=== PATIENT | female | born 1985 | race Caucasian/White ===

== ENCOUNTER 2020-01-30 10:32 | Outpatient (CLI) | payer OTHER, SELFPAY ==
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
[2020-01-30 12:45] LABS: Hematocrit 43.2 % (37.0-47.0); Hemoglobin 14.4 g/dL (12.0-15.0); Mean Corpuscular HGB Conc 33.3 g/dl (32-36); Mean Corpuscular Hemoglobin 32.2 pg (26-34); Mean Corpuscular Volume 96.6 fl (80-100); Platelet Count Result 322 k/mm3 (150-375); Red Blood Count 4.47 M/mm3 (4.2-5.4); Red Cell Distribution Width 12.2 % (11.5-14.5); White Blood Count 8.5 K/mm3 (4.5-10.0)
[2020-01-30 12:58] LABS: Alanine Aminotransferase 9 U/L (4-35); Albumin Level 4.6 g/dL (3.5-5.1); Alkaline Phosphatase 62 U/L (38-126); Anion Gap 11 mmol/L (8-16); Aspartate Amino Transferase 20 U/L (14-36); Bilirubin,Total 0.5 mg/dL (0.2-1.3); Blood Urea Nitrogen 23 mg/dL (7-17); Calcium 9.2 mg/dL (8.4-10.2); Carbon Dioxide 25 mmol/L (22-30); Chloride 104 mmol/L (98-107); Cholesterol 191 mg/dL (0-200); Estimated Glomerular Filt Rate > 60; Glucose 92 mg/dL (65-105); HDL Direct 48 mg/dL; Potassium 3.7 mmol/L (3.4-5.0); Sodium 140 mmol/L (137-145); Triglycerides 101 mg/dL (<150)
[2020-01-30 13:09] LABS: LDL Cholesterol Direct 117 mg/dL
[2020-01-30 14:04] LABS: Folic Acid 11.8 ng/mL (2.76->20)
== END 2020-01-30 10:33 | disposition home or self-care (01) ==
LOC: ANHIMG 10:41
PROVIDERS: PCP Internal Medicine; Visit Provider Physician Assistant
DX: Z00.00 Encounter for general adult medical examination without abnormal findings (principal); M50.322 Other cervical disc degeneration at C5-C6 level
CPT/HCPCS: 36415; 72050; 72072; 80053; 80061; 82607; 82746; 84443; 85027

== ENCOUNTER 2020-03-28 10:00 | Outpatient (CLI) | payer OTHER, SELFPAY ==
--- NOTE | ~2020-03-28 | XR_ITS ---
EXAMINATION: XR foot LT min 3V, XR foot RT min 3V DATE: 03/28/2020 10:20 INDICATION: Bilateral foot pain TECHNIQUE: 1. Dorsoplantar, two oblique and lateral views of the left foot were obtained. 2. Dorsoplantar, two oblique and lateral views of the right foot were obtained. COMPARISON: None. FINDINGS: Alignment is normal at both feet. No fracture. There is subtle flattening and subarticular sclerosis at the heads of both the left and right second metatarsals consistent with osteonecrosis (Freiberg's infraction). Joint spaces are normal. No cortical erosions or periosteal reaction. Soft tissues are u nremarkable. IMPRESSION: 1. 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 Reviewed, dictated and finalized at location B. IMPRESSION: 1. Subtle osteonecrosis at the heads of the left and right second metatarsals ( Freiberg's infraction).
== END 2020-03-28 10:01 | disposition home or self-care (01) ==
LOC: ANHIMG 10:06
PROVIDERS: PCP Internal Medicine; Visit Provider Podiatrist Foot & Ankle Surgery
DX: M79.672 Pain in left foot (principal); M79.671 Pain in right foot; M92.72 Juvenile osteochondrosis of metatarsus, left foot; M92.71 Juvenile osteochondrosis of metatarsus, right foot
CPT/HCPCS: 73630

== ENCOUNTER 2020-06-04 06:53 | Outpatient (NON) | payer OTHER, SELFPAY ==
[2020-06-05 01:24] LABS: SARS-CoV-2 RNA PCR Negative
== END 2020-06-04 06:54 ==
LOC: ANHCOVIDDT 06:53
PROVIDERS: PCP Internal Medicine; Visit Provider Physician Assistant
DX: R68.89 Other general symptoms and signs (principal); Z20.828 Contact with and (suspected) exposure to other viral communicable diseases
CPT/HCPCS: 87635; C9803; U0003

== ENCOUNTER 2020-07-08 09:56 | Outpatient (CLI) | payer OTHER, SELFPAY ==
[2020-07-08 10:29] LABS: Alanine Aminotransferase 12 U/L (4-35); Albumin Level 4.8 g/dL (3.5-5.1); Alkaline Phosphatase 54 U/L (38-126); Anion Gap 6 mmol/L (8-16); Aspartate Amino Transferase 23 U/L (14-36); Bilirubin,Total 0.5 mg/dL (0.2-1.3); Blood Urea Nitrogen 12 mg/dL (7-17); Calcium 9.5 mg/dL (8.4-10.2); Carbon Dioxide 30 mmol/L (22-30); Chloride 103 mmol/L (98-107); Cholesterol 214 mg/dL (0-200); Estimated Glomerular Filt Rate > 60; Glucose 98 mg/dL (65-105); HDL Direct 66 mg/dL; Potassium 4.3 mmol/L (3.4-5.0); Sodium 139 mmol/L (137-145); Triglycerides 68 mg/dL (<150)
[2020-07-08 10:41] LABS: LDL Cholesterol Direct 131 mg/dL
[2020-07-08 10:52] LABS: Hemoglobin A1C 5.2 % (<5.7)
== END 2020-07-08 09:57 | disposition home or self-care (01) ==
LOC: ANHLAB 09:57
PROVIDERS: Family Provider Hospitalist; PCP Internal Medicine; Visit Provider Nurse Practitioner
DX: Z13.220 Encounter for screening for lipoid disorders (principal); Z13.6 Encounter for screening for cardiovascular disorders; Z13.1 Encounter for screening for diabetes mellitus
CPT/HCPCS: 36415; 80053; 80061; 83036

== ENCOUNTER 2020-07-22 08:40 | Outpatient (CLI) | payer OTHER, SELFPAY ==
--- NOTE | 2020-07-22 08:41 | EST_ITS ---
Patient Info Name: An Douglas Age: 34 years : 1985 Gender: Female Ht: 62 in Wt: 133 lbs BSA: 1.64 m2 Exam Date: 07/22/2020 8:51 AM Exam Location: [facility] Stress Patient Status: Outpatient Admit Date: 07/22/2020 Staff Ordering Physician: Daily Jha Attending Provider: Daily Jha Exercise Technologist: Rsoina Holley RDCS Exercise Physician: Praveen Camargo DO Exam Type: CA stress test treadmill Study Info Indications R07.9 - Chest pain, unspecified An exercise stress test was performed. Summary 1. 1. Negative Eddi exercise stress test for ischemic ST changes by ECG criteria. 2. 2. Mildly reduced functional capacity, achieving 8.9 METs of workload. 3. 3. Appropriate HR response to exercise. 4. 4. Appropriate HR recovery at 1 minute post exercise. 5. 5. No imaging with stress testing. 6. 6. Patient informed of the above results. Protocol: Eddi Stress ECG Details Stage: REST Duration (min): 6 min : 44 sec Speed (mph): 0.0 Grade (%): 0 HR (bpm): 95 SBP (mmHg): 138 DBP (mmHg): 93 METS: --- Stage: REST Duration (min): 23 min : 5 sec Speed (mph): 0.0 Grade (%): 0 HR (bpm): 81 SBP (mmHg): 138 DBP (mmHg): 93 METS: --- Stage: STAGE 1 Duration (min): 1 min : 0 sec Speed (mph): 1.7 Grade (%): 10 HR (bpm): 116 SBP (mmHg): 138 DBP (mmHg): 93 METS: --- Stage: STAGE 1 Duration (min): 2 min : 0 sec Speed (mph): 1.7 Grade (%): 10 HR (bpm): 139 SBP (mmHg): 138 DBP (mmHg): 93 METS: --- Stage: STAGE 1 Duration (min): 3 min : 0 sec Speed (mph): 1.7 Grade (%): 10 HR (bpm): 151 SBP (mmHg): 149 DBP (mmHg): 75 METS: --- Stage: STAGE 2 Duration (min): 1 min : 0 sec Speed (mph): 2.5 Grade (%): 12 HR (bpm): 155 SBP (mmHg): 149 DBP (mmHg): 75 METS: --- Stage: STAGE 2 Duration (min): 2 min : 0 sec Speed (mph): 2.5 Grade (%): 12 HR (bpm): 162 SBP (mmHg): 158 DBP (mmHg): 76 METS: --- Stage: STAGE 2 Duration (min): 3 min : 0 sec Speed (mph): 2.5 Grade (%): 12 HR (bpm): 166 SBP (mmHg): 158 DBP (mmHg): 76 METS: --- Stage: STAGE 3 Duration (min): 1 min : 0 sec Speed (mph): 3.4 Grade (%): 14 HR (bpm): 177 SBP (mmHg): 164 DBP (mmHg): 77 METS: --- Stage: STAGE 3 Duration (min): 1 min : 0 sec Speed (mph): 3.4 Grade (%): 14 HR (bpm): 177 SBP (mmHg): 164 DBP (mmHg): 77 METS: --- Stage: RECOVERY Duration (min): 0 min : 59 sec Speed (mph): 0.0 Grade (%): 0 HR (bpm): 145 SBP (mmHg): 164 DBP (mmHg): 77 METS: --- Stage: RECOVERY Duration (min): 1 min : 59 sec Speed (mph): 0.0 Grade (%): 0 HR (bpm): 137 SBP (mmHg): 170 DBP (mmHg): 75 METS: --- Stage: RECOVERY Duration (min): 2 min : 59 sec Speed (
== END 2020-07-22 08:41 | disposition home or self-care (01) ==
PROVIDERS: Family Provider Hospitalist; PCP Internal Medicine; Visit Provider Nurse Practitioner
DX: R07.9 Chest pain, unspecified (principal)
CPT/HCPCS: 93017

== ENCOUNTER 2021-07-11 08:49 | Outpatient (CLI) | payer OTHER, SELFPAY ==
[2021-07-11 09:22] LABS: CRP < 0.5 mg/dL (<1.0)
[2021-07-14 20:03] LABS: Anti Cyclic Citrullinated Pept <16 Units (<20)
== END 2021-07-11 08:50 | disposition home or self-care (01) ==
PROVIDERS: PCP Internal Medicine; Visit Provider Internal Medicine
DX: M25.50 Pain in unspecified joint (principal); R20.0 Anesthesia of skin
CPT/HCPCS: 36415; 84443; 86038; 86140; 86200

== ENCOUNTER 2021-08-22 09:33 | Outpatient (CLI) | payer OTHER, SELFPAY ==
--- NOTE | 2021-08-22 11:00 | NEURO_ITS ---
Impression: # Complains of bilateral hand numbness and neck pain. # Right ulnar neuropathy around the elbow. # No Carpal Tunnel Syndrome.#normal f waves. # Normal needle/EMG exam bilaterally in upper extremities, proximally and distally. Nerve Conduction Studies Anti Sensory Summary Table Stim Site NR Peak (ms) P-T Amp (?V) Site1 Site2 Delta-P (ms) Dist (cm) Gregorio (m/s) Left Median Anti Sensory (2-3nd Digit) Wrist 2.7 78.6 Wrist 2-3nd Digit 2.7 14.0 52 Wrist 2.6 91.3 Wrist 2-3nd Digit 2.7 14.0 52 Right Median Anti Sensory (2-3nd Digit) Wrist 2.8 71.2 Wrist 2-3nd Digit 2.8 14.0 50 Wrist 2.6 101.1 Wrist 2-3nd Digit 2.8 14.0 50 Left Radial Anti Sensory (Base 1st Digit) Wrist 1.9 66.9 Wrist Base 1st Digit 1.9 0.0 Right Radial Anti Sensory (Base 1st Digit) Wrist 2.3 46.3 Wrist Base 1st Digit 2.3 0.0 Left Ulnar Anti Sensory (5th Digit) Wrist 2.7 29.5 Wrist 5th Digit 2.7 14.0 52 Right Ulnar Anti Sensory (5th Digit) Wrist 2.3 98.3 Wrist 5th Digit 2.3 14.0 61 Motor Summary Table Stim Site NR Onset (ms) O-P Amp (mV) Site1 Site2 Delta-0 (ms) Dist (cm) Gregorio (m/s) Left Median Motor (Abd Poll Brev) Wrist 3.1 3.7 Elbow Wrist 4.6 26.0 57 Elbow 7.7 4.5 Right Median Motor (Abd Poll Brev) Wrist 3.3 5.3 Elbow Wrist 4.2 25.0 60 Elbow 7.5 4.8 Left Ulnar Motor (Abd Dig Minimi) Wrist 2.5 5.0 A Elbow Wrist 4.5 26.0 58 A Elbow 7.0 7.7 Right Ulnar Motor (Abd Dig Minimi) Wrist 2.8 5.8 A Elbow Wrist 5.2 27.0 52 A Elbow 8.0 4.9 B Elbow Wrist 3.5 18.0 51 B Elbow 6.3 5.0 F Wave Studies NR F-Lat (ms) L-R F-Lat (ms) Left Median (Mrkrs) (Abd Poll Brev) 25.97 0.00 Right Median (Mrkrs) (Abd Poll Brev) 25.97 0.00 Left Ulnar (Mrkrs) (Abd Dig Min) 25.30 0.49 Right Ulnar (Mrkrs) (Abd Dig Min) 25.78 0.49 EMG Side Muscle Nerve Root Ins Act Fibs Amp Dur Recrt Comment Right 1stDorInt Ulnar C8-T1 Nml Nml Nml Nml Nml Right Ext Indicis Radial (Post Int) C7-8 Nml Nml Nml Nml Nml Right Ext Digitorum Radial (Post Int) C7-8 Nml Nml Nml Nml Nml Right BrachioRad Radial C5-6 Nml Nml Nml Nml Nml Right PronatorTeres Median C6-7 Nml Nml Nml Nml Nml Right Abd Poll Brev Median C8-T1 Nml Nml Nml Nml Nml Left 1stDorInt Ulnar C8-T1 Nml Nml Nml Nml Nml Left Ext Indicis Radial (Post Int) C7-8 Nml Nml Nml Nml Nml Left Ext Digitorum Radial (Post Int) C7-8 Nml Nml Nml Nml Nml Left BrachioRad Radial C5-6 Nml Nml Nml Nml Nml Left PronatorTeres Median C6-7 Nml Nml Nml Nml Nml Left Abd Poll Brev Median C8-T1 Nml Nml Nml Nml Nml Right ABD Dig Min Ulnar C8-T1 Nml Nml Nml Nml Nml Right Abd Poll Long Radial (Post Int) C7-8 Nml Nml Nml Nml Nml Right Biceps Musculocut C5-6 Nml Nml Nml Nml Nml Right Triceps Radial C6-7-8 Nml Nml Nml Nml Nml Right Deltoid Axillary C5-6 Nml Nml Nml Nml Nml Left ABD Dig Min Ulnar C8-T1 Nml Nml Nml Nml Nml Left Abd Poll Long Radial (Post Int) C7-8 Nml Nml Nml Nml Nml Left Biceps Musculocut C5-6 Nml Nml Nml Nml Nml Left Triceps Radial C6-7-8 Nml Nml Nml Nml Nml Left Deltoid Axillary C5-6 Nml Nml Nml Nml Nml MTDD
== END 2021-08-22 09:34 | disposition home or self-care (01) ==
LOC: ANHNEURO 09:35
PROVIDERS: PCP Internal Medicine; Visit Provider Internal Medicine
DX: R20.2 Paresthesia of skin (principal); G56.21 Lesion of ulnar nerve, right upper limb
CPT/HCPCS: 95886; 95911

== ENCOUNTER 2022-07-18 08:14 | Outpatient (CLI) | payer OTHER, SELFPAY ==
--- NOTE | ~2022-07-18 | XR_ITS ---
EXAMINATION: XR lumbar spine 2-3V DATE: 07/18/2022 13:09 INDICATION: Pain in thoracic spine. TECHNIQUE: 3 views of lumbar spine were obtained. COMPARISON: None. FINDINGS: There is 3 degrees dextrocurvature of lumbar spine. Vertebral body heights and intervertebr al disc heights are normal. The facet joints are unremarkable. IMPRESSION: 1. No etiology for the patient's symptoms. Reviewed, dictated and finalized at location A. LITIES MECHANICAL DESIGN ENGINEER
[2022-07-18 11:58] LABS: Hematocrit 44.7 % (37.0-47.0); Hemoglobin 14.6 g/dL (12.0-15.0); Mean Corpuscular HGB Conc 32.7 g/dl (32-36); Mean Corpuscular Hemoglobin 31.9 pg (26-34); Mean Corpuscular Volume 97.8 fl (80-100); Mean Platelet Volume 9.7 fl (7.4-10.4); Platelet Count Result 330 k/mm3 (150-375); Red Blood Count 4.57 M/mm3 (4.2-5.4); Red Cell Distribution Width 12.8 % (11.5-14.5); White Blood Count 5.9 K/mm3 (4.5-10.0)
[2022-07-18 13:05] LABS: Alanine Aminotransferase 16 U/L (6-35); Albumin Level 4.4 g/dL (3.5-5.1); Alkaline Phosphatase 64 U/L (38-126); Anion Gap 5 mmol/L (8-16); Aspartate Amino Transferase 21 U/L (14-36); Bilirubin,Total 0.4 mg/dL (0.2-1.3); Blood Urea Nitrogen 15 mg/dL (7-17); Carbon Dioxide 29 mmol/L (22-30); Chloride 103 mmol/L (98-107); Cholesterol 212 mg/dL (0-200); Estimated Glomerular Filt Rate > 60; Glucose 94 mg/dL (65-110); HDL Direct 53 mg/dL; Potassium 3.9 mmol/L (3.4-5.0); Sodium 137 mmol/L (137-145); Triglycerides 75 mg/dL (<150)
[2022-07-18 13:16] LABS: LDL Cholesterol Direct 114 mg/dL
[2022-07-18 13:30] LABS: Thyroid Stimulating Hormone 0.957 uIU/mL (0.465-4.680)
== END 2022-07-18 08:15 | disposition home or self-care (01) ==
PROVIDERS: PCP Internal Medicine; Visit Provider Internal Medicine
DX: Z00.00 Encounter for general adult medical examination without abnormal findings (principal); R63.5 Abnormal weight gain; M54.6 Pain in thoracic spine; G89.29 Other chronic pain
CPT/HCPCS: 36415; 72100; 80053; 80061; 84443; 85027

== ENCOUNTER 2023-10-15 08:24 | Outpatient (CLI) | payer OTHER, SELFPAY ==
[2023-10-15 08:47] LABS: Hemoglobin 14.3 g/dL (12.0-15.0); Mean Corpuscular HGB Conc 33.3 g/dl (32-36); Mean Corpuscular Hemoglobin 31.9 pg (26-34); Mean Platelet Volume 9.3 fl (7.4-10.4); Platelet Count Result 286 k/mm3 (150-375); Red Blood Count 4.48 M/mm3 (4.2-5.4); White Blood Count 5.3 K/mm3 (4.5-10.0)
[2023-10-15 09:00] LABS: Alanine Aminotransferase 16 U/L (6-35); Albumin Level 4.6 g/dL (3.5-5.1); Alkaline Phosphatase 60 U/L (38-126); Anion Gap 8 mmol/L (4-12); Aspartate Amino Transferase 21 U/L (14-36); Bilirubin,Total 0.6 mg/dL (0.2-1.3); Blood Urea Nitrogen 22 mg/dL (7-17); Calcium 9.5 mg/dL (8.4-10.2); Carbon Dioxide 24 mmol/L (22-30); Chloride 108 mmol/L (98-107); Cholesterol 179 mg/dL (0-200); Estimated Glomerular Filt Rate > 60; Glucose 106 mg/dL (65-110); HDL Direct 51 mg/dL; Potassium 4.1 mmol/L (3.4-5.0); Sodium 140 mmol/L (137-145); Triglycerides 58 mg/dL (<150)
[2023-10-15 09:12] LABS: LDL Cholesterol Direct 109 mg/dL
== END 2023-10-15 08:25 | disposition home or self-care (01) ==
LOC: ANHLAB 08:26
PROVIDERS: PCP Family Medicine; Visit Provider Family Medicine
DX: Z00.00 Encounter for general adult medical examination without abnormal findings (principal)
CPT/HCPCS: 36415; 80053; 80061; 85027

== ENCOUNTER 2024-07-24 08:23 | Outpatient (CLI) | payer OTHER, SELFPAY ==
--- NOTE | ~2024-07-24 | MR_ITS ---
EXAMINATION: MR cervical spine wo con DATE: 07/24/2024 09:01 INDICATION: Hyperreflexia TECHNIQUE: Magnetic resonance imaging (MRI) of the cervical spine was performed without intravenous c ontrast. Sequences included sagittal T2-weighted FSE, sagittal T2-weighted FS FSE, sagittal T1-weight ed FSE, axial MERGE and axial T2-weighted FSE. COMPARISON: None FINDINGS: Straightening of the normal cervical lordosis. 1 mm retrolisthesis C5 on C6. Vertebral body heights are normal. Bone marrow signal intensity is normal. Moderate disc height loss at C5-C6. Cord signal intensity is normal. Cervical soft tissues are unremarkable. The following disc levels are specifical ly discussed: C2-C3: The disc does not extend beyond the endplate margin. There is no uncovertebral joint osteoarth ritis. There is mild right and moderate left facet joint osteoarthritis. There is mild left neural fo raminal stenosis. There is no central canal stenosis. C3-C4: Disc is mildly bulging. There is mild bilateral uncovertebral joint osteoarthritis. There is m ild bilateral facet joint osteoarthritis. There is minimal bilateral neural foraminal stenosis. There is minimal central canal stenosis. C4-C5: The disc does not extend beyond the endplate margin. There is mild left uncovertebral joint os teoarthritis. There is mild bilateral facet joint osteoarthritis. There is no neural foraminal stenos is. There is no central canal stenosis. C5-C6: Disc is bulging which mildly indents the left ventral surface of the cord. There is moderate b ilateral uncovertebral joint osteoarthritis. There is mild bilateral facet joint osteoarthritis. Ther e is mild bilateral neural foraminal stenosis. There is mild central canal stenosis. C6-C7: Disc is bulging. There is mild bilateral uncovertebral joint osteoarthritis. There is mild lef t and moderate right facet joint osteoarthritis. There is mild left neural foraminal stenosis. There is mild central canal stenosis. C7-T1: The disc does not extend beyond the endplate margin. There is no uncovertebral joint osteoarth ritis. There is minimal bilateral facet joint osteoarthritis. There is no neural foraminal stenosis. There is no central canal stenosis. IMPRESSION: 1. Cervical spondylosis, moderate at C5-C6 and otherwise minimal to mild. Reviewed, dictated and finalized at location B. [facility] [employer]
--- OUTSIDE RECORDS SUMMARY | 2024-07-24 08:34 | XMS_ITS | Clinical Summary ---
Author Organization [facility] Address [address] [place] [id number] Care Team Providers Care Tube Test Technician Name Role Phone Jake Yanes MD Primary Care Provider [phone] Allergies Active Allergy Reactions Criticality Noted Date Comments Acetaminophen Hives 07/07/2024 Cetirizine Joint Pain 07/07/2024 Medications albuterol sulfate HFA 108 (90 Base) MCG/ACT inhaler INHALE 2 PUFFS BY MOUTH EVERY 4 TO 6 HOURS FOR 15 DAYS NEEDED 02/18/2024 Active diclofenac EC (VOLTAREN) 75 MG tablet Take 1 tablet (75 mg total) by mouth every 12 (twelve) hours as needed. 02/18/2024 Active Encounters Date Type Department Care Team Description 07/17/[address], [address] [place] [phone] Tammie Hoff MD Follow Up Call 07/07/2024 10:00 AM CHECK AND TRANSFER BEADER Office Visit [address], [address] [place] [phone] Tammie Hoff MD Neuropathy 07/07/2024 Travel from Last 3 Months Social History Tobacco Use Types Packs/Day Years Used Date Smoking Tobacco: Former Cigarettes Smokeless Tobacco: Never Tobacco Cessation:Counseling Given: Not Answered Alcohol Use Standard Drinks/Week Comments Yes 0 (1 standard drink = 0.6 oz pur e alcohol) rarely PHQ-2 Answer Date Recorded Patient Health Questionnaire-2 Score 0 07/07/2024 Comments Unknown Sex and Gender Information Value Date Recorded Sex Assigned at Not on file Legal Sex Female 2:17 PM CHECK AND TRANSFER BEADER Gender Identity Not on file Sexual Orientation Not on file Last Filed Vital Signs Vital Sign Reading Time Taken Comments Blood Pressure 108/76 07/07/2024 10:21 AM CHECK AND TRANSFER BEADER Pulse 80 07/07/2024 10:21 AM CHECK AND TRANSFER BEADER Temperature 37 C (98.6 F) 07/07/2024 10:21 AM CHECK AND TRANSFER BEADER Respiratory Rate 16 07/07/2024 10:21 AM CHECK AND TRANSFER BEADER Oxygen Saturation 99% 07/07/2024 10:21 AM CHECK AND TRANSFER BEADER Inhaled Oxygen Concentration - - Weight 64.4 kg (142 lb) 07/07/2024 10:21 AM CHECK AND TRANSFER BEADER Height 157.5 cm (5' 2 ) 07/07/2024 10:21 AM CHECK AND TRANSFER BEADER Body Mass Index 25.97 07/07/2024 10:21 AM CHECK AND TRANSFER BEADER Plan of Treatment Health Maintenance Due Date Last Done Comments Cervical Cancer Screening Pa p Smear (Age 30 to 64) Every 3 Years 1985 Annual Physical 1989 Hepatitis C 2004 DTaP, Tdap and Td Vaccines ( 1 - Tdap) 2005 Hepatitis B Vaccines (1 of 3 - 19+ 3-dose series) 2005 Cervical Cancer Screening Pa p with HPV Testing (Age 30 to 64) Every 5 Years 2016 Cervical Cancer Screening with HPV 2016 COVID-19 Vaccine (2023-2 5 season) 2024 Influenza Adult (#1) 2024 05/19/2013 PHQ-2 (Physician [place]) Completed 07/07/2024 HPV Vaccines Aged Out No longer eligi ble based on patient's age to complete this topic Meningococcal B Vaccine Aged Out No l onger eligible based on patient's age to complete this topic Meningococcal Vaccine Aged Out No lawanda brandon eligible based on patient's age to complete this topic Pneumococcal Vaccine: Pediat rics (0 to 5 Years) and At-Risk Patients (6 to 64 Years) Aged Out No longer eligi ble based on patient's age to complete this topic RSV Immunizations Under 20 Months Aged Out No longer eligible based on patient's age to complete this topic Insurance [employer] Care Teams Tube Test Technician Relationship Specialty Start Date End Date Jake Yanes MD [address] [place] [address] PCP - General FAMILY PRACTICE 05/19/24
--- OUTSIDE RECORDS SUMMARY | 2024-07-24 08:34 | XMS_ITS | Data Portability ---
Author Organization [facility] [employer], Main Office Address [address] [place] [address] Care Team Providers Care Adolescent Specialist Name Role Phone DANIEL CONRAD Primary Care Provider [phone] Assessment Encounter Date Assessment Date Assessment LastModified by Organization Details LastModified Time 05/30/2023 05/30/2023 37 yo F with - HYPERKALEMIA, mild - HLD, uncontrolled - CHRONIC NECK PAIN - CERVICAL RADICULOPATHY - LT KNEE PAIN, CHRONIC - NEUROPATHY - ASTHMA, intermittent - OVERWEIGHT Annual labs, ESR, ARNALDO, RF: 01/30/23. X-ray C-spine: 01/16/23. X-ray Lt knee: 01/16/23. D/w pt in detail about her findings, recent labs & imagines and further plan of care. Advised to start on statin; but pt declined. Risks explained. Pt declined for PT. Meds as directed. Diet and exercise explained in detail. Educated about different options for her. F/u with Pain clinic as per schedule. Cont f/u with Ortho as per schedule. Cont f/u Hog Buyer as per schedule. Offered to refer to Neuro; but pt declined. HM: WWE - 03/08, normal as per pt. Cont f/u with Gyne/MAIL PROCESSOR as per schedule. Flu - Pt declined. Tdap, Gardasil - At pharmacy/HD. F/u in 3 months. BMP, lipids in 09/07. Annual labs in 02/07. Not available 05/30/2023 10:42:21 08/29/2023 08/29/2023 38 yo F with - HYPERKALEMIA, resolved - HLD (diet controlled), improved - KERATOSIS PILARIS - CHRONIC NECK PAIN - CERVICAL RADICULOPATHY - LT KNEE PAIN, CHRONIC - NEUROPATHY - ASTHMA, intermittent - OVERWEIGHT Annual labs, ESR, ARNALDO, RF: 01/30/23. X-ray C-spine: 01/16/23. X-ray Lt knee: 01/16/23. D/w pt in detail about her findings, recent labs & imagines and further plan of care. Pt declined for PT. Will refer pt to Derm. Meds as directed. Diet and exercise explained in detail. Educated about different options for her. F/u with Pain clinic as per schedule. F/u with Derm as per schedule. Cont f/u with Ortho as per schedule. Cont f/u Hog Buyer as per schedule. Offered to refer to Neuro; but pt declined. HM: WWE - 03/08, normal as per pt. Cont f/u with Gyne/MAIL PROCESSOR as per schedule. Flu - Pt declined. Tdap, Gardasil - At pharmacy/HD. F/u in 3-5 months. Annual labs in 02/07. [email or web address] Not available 08/29/2023 10:14:05 02/18/2024 02/18/2024 38 yo F with - WELL ADULT VISIT - HYPERKALEMIA, resolved - HLD (diet controlled), improved - KERATOSIS PILARIS - CHRONIC NECK PAIN - CERVICAL RADICULOPATHY - LT KNEE PAIN, CHRONIC - NEUROPATHY - ASTHMA, intermittent - OVERWEIGHT - EX-SMOKER Annual labs, ESR, ARNALDO, RF: 01/30/23. X-ray C-spine: 01/16/23. X-ray Lt knee: 01/16/23. D/w pt in detail about her findings, recent labs & imagines and further plan of care. Will do routine labs. Pt declined for cxr. Meds as directed. Diet and exercise explained in detail. F/u with Pain clinic as per schedule. F/u with Derm as per schedule. Cont f/u with Ortho as per schedule. Cont f/u Hog Buyer as per schedule. Offered to refer to Neuro; but pt declined. Pt declined for PT. HM: WWE - 03/08, normal as per pt. Cont f/u with Gyne/MAIL PROCESSOR as per schedule. Flu - Pt declined. Tdap, Gardasil - At pharmacy/HD. F/u in 2-3 weeks. Annual labs in 03/11. [email or web address] Not available 02/18/2024 09:16:40 03/05/2024 03/05/2024 38 yo F with - HLD (diet controlled), improved - KERATOSIS PILARIS - CHRONIC NECK PAIN - CERVICAL RADICULOPATHY - LT KNEE PAIN, CHRONIC - NEUROPATHY - ASTHMA, intermittent - H/O OVERWEIGHT - EX-SMOKER Annual labs: 02/18/24. Annual labs, ESR, ARNALDO, RF: 01/30/23. X-ray C-spine: 01/16/23. X-ray Lt knee: 01/16/23. D/w pt in detail about her findings, recent labs & imagines and further plan of care. Meds as directed. Diet and exercise explained in detail. F/u with Pain clinic as per schedule. F/u with Derm as per schedule. Cont f/u with Ortho as per schedule. Cont f/u Hog Buyer as per schedule. Offered to refer to Neuro; but pt declined. Pt declined for PT. Pt declined for cxr. HM: WWE - 03/08, normal as per pt. Cont f/u with Gyne/MAIL PROCESSOR as per schedule. Flu - Pt declined. Tdap, Gardasil - At pharmacy/HD. F/u in 6 months. Lipids in 09/08. Annual labs in 03/11. Not available 03/05/2024 16:38:09 Plan of Treatment Reminders Order Date Submit Date Provider Last Modified By Organization Details Last Modified Time Details Appointments Follow Up 15 2024 03:30P Derek Conrad MD Not available Not available Not available Lab lipid panel, serum 2022 024 [facility] (Lab), [address] [place], [address], 08/19/2023 18:42:02 BMP, serum or plasma 2022 024 [facility] (Lab), [address] [place], [address], 08/19/2023 18:42:07 uric acid, serum or plasma 2023 024 [facility] (Lab), [address] [place], [address], 02/18/2024 16:49:37 CBC w/ auto diff 2023 024 [facility] (Lab), [address] [place], [address], 02/18/2024 14:30:17 CMP, serum or plasma 2023 024 [facility] (Lab), [address] [place], [address], 02/18/2024 16:49:24 lipid panel, serum 2023 024 [facility] (Lab), [address] [place], [address], 02/18/2024 16:49:34 TSH, serum, reflex free T4 [address] (Lab), [address] [place], [address], 02/25/2024 08:37:25 urinalysi s complete, reflex culture [address] (Lab), [address] [place], [address], 02/25/2024 08:37:25 HbA1c (hemoglob in A1c), blood [address] (Lab), [address] [place], [address], 02/25/2024 08:37:26 vitamin B12 + folate, serum or blood [address] (Lab), [address] [place], [address], 02/25/2024 08:37:26 vitamin D3, 25-hydrox y, serum 2023 024 [facility] (Lab), [address] [place], [address], 02/18/2024 16:16:19 magnesium , serum or plasma 2023 024 [facility] (Lab), [address] [place], [address], 02/18/2024 16:49:39 lipid panel, serum 2023 025 [facility] (Lab), [address] [place], [address], 03/05/2024 16:30:21 Referral dermatolo gist referral - Please call patient to schedule an appointme nt. 2023 024 [email or web address] Aniyah Sandoval MD, [facility] [facility], [address], [address], 09/27/2023 08:53:48 Procedures None recorded. Surgeries None recorded. Imaging None recorded. Medication Orders diclofena c sodium 75 mg tablet,de layed release 2022 023 [facility][id number], [address], [place], [id number], 05/30/2023 10:42:51 cyclobenz aprine 10 mg tablet 2022 023 [facility] #04635, [address], [place], [id number], 05/30/2023 10:34:47 fluticaso ne propionat e 50 mcg/actua tion nasal spray,maria pension 2022 023 [email or web address] [facility] #61539, [address] [place], [place], [id number], 03/05/2024 16:21:[address] 10 mg tablet 2022 023 [email or web address] [facility] #88598, [address], [place], [place], [id number], 08/29/2023 10:03:27 doxycycli ne hyclate 100 mg capsule 2022 023 [email or web address] [facility] #39244, [address], [place], [place], [id number], 08/29/2023 10:03:22 albuterol sulfate HFA 90 mcg/actua tion aerosol inhaler 2022 023 [facility] #45254, [address], [place], [place], [id number], 05/30/2023 10:34:45 diclofena c sodium 75 mg tablet,de layed release 2023 024 [facility] #27315, [address], [place], [place], [id number], 08/29/2023 10:04:15 cyclobenz aprine 10 mg tablet 2023 024 [facility] #96002, [address], [place], [place], [id number], 08/29/2023 10:04:17 fluticaso ne propionat e 50 mcg/actua tion nasal spray,maria pension 2023 024 [email or web address] [facility] #14558, [address], [place], [place], [id number], 03/05/2024 16:21:44 albuterol sulfate HFA 90 mcg/actua tion aerosol inhaler 2023 024 [facility] #18313, [address], [place], [place], [id number], 08/29/2023 10:04:15 diclofena c sodium 75 mg tablet,de layed release 2023 024 [facility] #85008, [address], [place], [place], [id number], 02/18/2024 09:11:02 fluticaso ne propionat e 50 mcg/actua tion nasal spray,[facility] 2023 024 [email or web address] [facility] #97117, [address], [place], [place], [id number], 03/05/2024 16:21:44 albuterol sulfate HFA 90 mcg/actua tion aerosol inhaler 2023 024 [email or web address] [facility] #16589, [address], [place], [place], [id number], 02/18/2024 09:05:50 diclofena c sodium 75 mg tablet,de layed release 2023 024 [email or web address] [facility] #82933, [address], [place], [place], [id number], 03/05/2024 16:30:31 albuterol sulfate HFA 90 mcg/actua tion aerosol inhaler 2023 024 [facility] #78774, [address], [place], [place], [id number], 03/05/2024 16:30:34 fluticaso ne propionat e 50 mcg/actua tion nasal spray,[facility] 2023 024 [facility] #40470, [address], [place], [place], [id number], 03/05/2024 16:30:27 Patient TargetsNo targets recorded. Patient Instructions Encounter Date Encounter Id Patient Instructions Last Modified By Organization Details Last Modified Time 05/30/2023 [id number] high cholesterol : care instructions [email or web address] Not available 05/30/2023 10:34:37 08/29/2023 [id number] high cholesterol : care instructions [email or web address] Not available 08/29/2023 10:04:08 02/18/2024 [id number] high cholesterol : care instructions [email or web address] Not available 02/18/2024 09:05:16 03/05/2024 [id number] high cholesterol : care instructions Not available 03/05/2024 16:30:21 Reason for Referral Improvement Lead Referral for K eratosis pilaris Please call patient to schedule an appointment. Referring Physician: Daniel Conrad, Family Medicine, Encounter Date: 08/29/2023 Results Created Date Observation Date Name Description Value Unit Range Abnormal Flag Note LastModifiedBy Organization Detail LastModifiedTime 05/01/2005/01/2023 LIPID PANEL cholesterol 203 mg/dL 140-19 9 high NIH ERIC NSUS RECOM MENDA TION FOR HARRY STERO L: ADULT CHILD LOW RISK: <200 <170 BORDE RLINE : <200- 239 ----- HIGH RISK: >240 >200 Not Available [facility] (Lab) [address] [place], [address], 05/01/2023 15:09:39 05/01/20 23 05/01/2023 LIPID PANEL triglyceride s 77 mg/dL 0-150 NIH ERIC NSUS REPOR T RECOM MENDA TION FOR TRIGL YCERI ERICH: ADULT CHILD LOW RISK: <150 ----- BODER LINE: 150-1 99 ----- HIGH RISK: >200 ----- Not Available [facility] (Lab) [address] [place], [address], 05/01/2023 15:09:39 05/01/20 23 05/01/2023 LIPID PANEL HDL cholesterol 53 mg/dL 40- Not Available [facility] (Lab) [address] [place], [address], 05/01/2023 15:09:39 05/01/20 23 05/01/2023 LIPID PANEL LDL cholesterol, calculated 135 mg/dL 0-130 high NIH ERIC NSUS REPOR T RECOM MENDA TIONS FOR LDL: ADULT CHILD LOW RISK <130 <110 (OPTI MAL LDL) <100 ----- BORDE RLINE : 130-1 59 ----- HIGH RISK: >160 >130 A TRIGL YCERI DE RESUL T >400 INVAL IDATE S THE CALCU LATIO N FOR LDL FRACT IONAT ION - THE LDL RESUL T WILL NOT BE REPOR CHIDI. Not Available [facility] (Lab) [address] [place], [address], 05/01/2023 15:09:39 08/19/19 24 08/19/2023 LIPID PANEL cholesterol 146 mg/dL 140-19 9 NIH ERIC NSUS RECOM MENDA TION FOR HARRY STERO L: ADULT CHILD LOW RISK: <200 <170 BORDE RLINE : <200- 239 ----- HIGH RISK: >240 >200 Not Available [facility] (Lab) [address] [place], [address], 08/19/2023 18:42:02 08/19/19 24 08/19/2023 LIPID PANEL triglyceride s 107 mg/dL 0-150 NIH ERIC NSUS REPOR T RECOM MENDA TION FOR TRIGL YCERI ERICH: ADULT CHILD LOW RISK: <150 ----- BODER LINE: 150-1 99 ----- HIGH RISK: >200 ----- Not Available [facility] (Lab) [address] [place], [address], 08/19/2023 18:42:02 08/19/19 24 08/19/2023 LIPID PANEL HDL cholesterol 32 mg/dL 40- low Not Available [facility] (Lab) [address] [place], [address], 08/19/2023 18:42:02 08/19/19 24 08/19/2023 LIPID PANEL LDL cholesterol, calculated 93 mg/dL 0-130 NIH ERIC NSUS REPOR T RECOM MENDA TIONS FOR LDL: ADULT CHILD LOW RISK <130 <110 (OPTI MAL LDL) <100 ----- BORDE RLINE : 130-1 59 ----- HIGH RISK: >160 >130 A TRIGL YCERI DE RESUL T >400 INVAL IDATE S THE CALCU LATIO N FOR LDL FRACT IONAT ION - THE LDL RESUL T WILL NOT BE REPOR CHIDI. Not Available [facility] (Lab) [address] [place], [address], 08/19/2023 18:42:02 08/19/19 24 08/19/2023 BASIC METAB OLIC PANEL sodium 141 mmol/ L 137-14 5 Not Available [facility] (Lab) [address] [place], [address], 08/19/2023 18:42:07 08/19/19 24 08/19/2023 BASIC METAB OLIC PANEL potassium 4.3 mmol/ L 3.5-5. 1 Not Available [facility] (Lab) [address] [place], [address], 08/19/2023 18:42:07 08/19/19 24 08/19/2023 BASIC METAB OLIC PANEL chloride 105 mmol/ L 98-107 Not Available [facility] (Lab) [address] [place], [address], 08/19/2023 18:42:07 08/19/19 24 08/19/2023 BASIC METAB OLIC PANEL carbon dioxide 29 mmol/ L 22-30 Not Available [facility] (Lab) [address] [place], [address], 08/19/2023 18:42:07 08/19/19 24 08/19/2023 BASIC METAB OLIC PANEL anion gap 11.3 mmol/ L 14-22 low Not Available [facility] (Lab) [address] [place], [address], 08/19/2023 18:42:07 08/19/19 24 08/19/2023 BASIC METAB OLIC PANEL glucose 97 mg/dL 70-99 Not Available [facility] (Lab) [address] [place], [address], 08/19/2023 18:42:07 08/19/19 24 08/19/2023 BASIC METAB OLIC PANEL BUN 11 mg/dL 8-19 Not Available [facility] (Lab) [address] [place], [address], 08/19/2023 18:42:07 08/19/19 24 08/19/2023 BASIC METAB OLIC PANEL creatinine 0.59 mg/dL 0.66-1 .25 low Not Available [facility] (Lab) [address] [place], [address], 08/19/2023 18:42:07 08/19/19 24 08/19/2023 BASIC METAB OLIC PANEL GFR >60 Refer ence Range : [place] ge GFR Healt hy Adult : >60 mL/mi n/1.7 3 m2 Chron ic Kidne y Disea se: 15-60 mL/mi n/1.7 3 m2 Kidne y Failu re: <15/m L/min /1.73 m2 www.n iddk. nih.g ov The MDRD study equat ion has not been valid ated in child yareli <18 years of age; pregn ant women ; the elder ly >85 years of age; or in some racia l or ethni c subgr oups, such as Hisny nics. Outsi de the valid ated trino eters , estim ated GFR is less accur ate, requi ring clini kate judgm ent on a case- by-ca se basis . Clini kate inter preta tion for other races and ages must be made by the clini diana. The MDRD study equat ion has not been valid ated for the evalu ation of serum creat inine relat ed to nutri jayna l statu s or medic ation usage . For perso ns <18 years of age, a pedia tric GFR calcu lator is avail able on the NKF websi te: https ://keren porter.avis martínez.o greg/pr ofess ional s/kdo qi/gf r_cal culat or Not Available [facility] (Lab) [address] [place], [address], 08/19/2023 18:42:07 08/19/19 24 08/19/2023 BASIC METAB OLIC PANEL calcium 9.1 mg/dL 8.4-10 .2 Not Available [facility] (Lab) [address] [place], [address], 08/19/2023 18:42:07 02/18/20 24 02/18/2024 CBC/C OMPLE TE BLD COUNT W/DIF F white blood cells 5.4 x10'3 /uL 4.2-10 .8 Not Available [facility] (Lab) [address] [place], [address], 02/18/2024 14:30:17 02/18/20 24 02/18/2024 CBC/C OMPLE TE BLD COUNT W/DIF F red blood cells 4.11 x10'6 /uL 3.80-5 .20 Not Available [facility] (Lab) [address] [place], [address], 02/18/2024 14:30:17 02/18/20 24 02/18/2024 CBC/C OMPLE TE BLD COUNT W/DIF F hemoglobin 13.3 g/dL 12.0-1 5.6 Not Available [facility] (Lab) [address] [place], [address], 02/18/2024 14:30:17 02/18/20 24 02/18/2024 CBC/C OMPLE TE BLD COUNT W/DIF F hematocrit 40.6 % 35.7-4 5.7 Not Available [facility] (Lab) [address] [place], [address], 02/18/2024 14:30:17 02/18/20 24 02/18/2024 CBC/C OMPLE TE BLD COUNT W/DIF F mean red cell volume 98.8 fL 82.0-9 9.0 Not Available [facility] (Lab) [address] [place], [address], 02/18/2024 14:30:17 02/18/20 24 02/18/2024 CBC/C OMPLE TE BLD COUNT W/DIF F mean red cell hemoglobin 32.4 pg 27.0-3 3.0 Not Available [facility] (Lab) [address] [place], [address], 02/18/2024 14:30:17 02/18/20 24 02/18/2024 CBC/C OMPLE TE BLD COUNT W/DIF F mean RBC HGB concentratio n 32.8 g/dL 31.0-3 6.0 Not Available [facility] (Lab) [address] [place], [address], 02/18/2024 14:30:17 02/18/20 24 02/18/2024 CBC/C OMPLE TE BLD COUNT W/DIF F red cell distribution width 13.3 % 11.8-1 5.5 Not Available [facility] (Lab) [address] [place], [address], 02/18/2024 14:30:17 02/18/20 24 02/18/2024 CBC/C OMPLE TE BLD COUNT W/DIF F platelets 298 x10'3 /uL 150-40 0 Not Available [facility] (Lab) [address] [place], [address], 02/18/2024 14:30:17 02/18/20 24 02/18/2024 CBC/C OMPLE TE BLD COUNT W/DIF F mean platelet volume 10.2 fL 9.0-12 .4 Not Available [facility] (Lab) [address] [place], [address], 02/18/2024 14:30:17 02/18/20 24 02/18/2024 CBC/C OMPLE TE BLD COUNT W/DIF F neutrophils 61.3 % 39.0-7 2.0 Not Available [facility] (Lab) [address] [place], [address], 02/18/2024 14:30:17 02/18/20 24 02/18/2024 CBC/C OMPLE TE BLD COUNT W/DIF F lymphocytes 30.5 % 16.0-4 7.0 Not Available [facility] (Lab) [address] [place], [address], 02/18/2024 14:30:17 02/18/20 24 02/18/2024 CBC/C OMPLE TE BLD COUNT W/DIF F monocytes 5.4 % 5.0-12 .0 Not Available [facility] (Lab) [address] [place], [address], 02/18/2024 14:30:17 02/18/20 24 02/18/2024 CBC/C OMPLE TE BLD COUNT W/DIF F eosinophils 2.0 % 1.0-7. 0 Not Available [facility] (Lab) [address] [place], [address], 02/18/2024 14:30:17 02/18/20 24 02/18/2024 CBC/C OMPLE TE BLD COUNT W/DIF F basophils 0.6 % 0.0-2. 0 Not Available [facility] (Lab) [address] [place], [address], 02/18/2024 14:30:17 02/18/20 24 02/18/2024 CBC/C OMPLE TE BLD COUNT W/DIF F immature granulocytes 0.2 % 0.00-0 .50 Not Available [facility] (Lab) [address] [place], [address], 02/18/2024 14:30:17 02/18/20 24 02/18/2024 CBC/C OMPLE TE BLD COUNT W/DIF F neutrophils, absolute count 3.29 x10'3 /uL 1.5-8. 0 Not Available [facility] (Lab) [address] [place], [address], 02/18/2024 14:30:17 02/18/20 24 02/18/2024 CBC/C OMPLE TE BLD COUNT W/DIF F lymphocytes, absolute count 1.64 x10'3 /uL 1.07-3 .43 Not Available [facility] (Lab) [address] [place], [address], 02/18/2024 14:30:17 02/18/20 24 02/18/2024 CBC/C OMPLE TE BLD COUNT W/DIF F monocytes, absolute count 0.29 x10'3 /uL 0.29-0 .99 Not Available [facility] (Lab) [address] [place], [address], 02/18/2024 14:30:17 02/18/20 24 02/18/2024 CBC/C OMPLE TE BLD COUNT W/DIF F eosinophils, absolute count 0.11 x10'3 /uL 0.02-0 .53 Not Available [facility] (Lab) [address] [place], [address], 02/18/2024 14:30:17 02/18/20 24 02/18/2024 CBC/C OMPLE TE BLD COUNT W/DIF F basophils, absolute count 0.03 x10'3 /uL 0.01-0 .08 Not Available [facility] (Lab) [address] [place], [address], 02/18/2024 14:30:17 02/18/20 24 02/18/2024 CBC/C OMPLE TE BLD COUNT W/DIF F immature granulocytes ,absolute 0.01 x10'3 /uL 0.00-0 .05 Not Available [facility] (Lab) [address] [place], [address], 02/18/2024 14:30:17 02/18/20 24 02/18/2024 CBC/C OMPLE TE BLD COUNT W/DIF F nucleated red blood cells 0.0 % -0 Not Available [facility] (Lab) [address] [place], [address], 02/18/2024 14:30:17 02/18/20 24 02/18/2024 CBC/C OMPLE TE BLD COUNT W/DIF F NRBC# 0.00 x10'3 /uL Not Available [facility] (Lab) [address] [place], [address], 02/18/2024 14:30:17 02/18/20 24 02/18/2024 URINA LYSIS COMPL ETE, IRIS color LIGHT- YELLOW Not Available [facility] (Lab) [address] [place], [address], 02/18/2024 15:14:55 02/18/20 24 02/18/2024 URINA LYSIS COMPL ETE, IRIS appear CLEAR Not Available [facility] (Lab) [address] [place], [address], 02/18/2024 15:14:55 02/18/20 24 02/18/2024 URINA LYSIS COMPL ETE, IRIS specific gravity 1.024 1.001- 1.030 Not Available [facility] (Lab) [address] [place], [address], 02/18/2024 15:14:55 02/18/20 24 02/18/2024 URINA LYSIS COMPL ETE, IRIS pH 7.5 pH_un its 5.0-9. 0 Not Available [facility] (Lab) [address] [place], [address], 02/18/2024 15:14:55 02/18/20 24 02/18/2024 URINA LYSIS COMPL ETE, IRIS leukocytes NEGATI VE ilia/u L negati ve- Not Available [facility] (Lab) [address] [place], [address], 02/18/2024 15:14:55 02/18/20 24 02/18/2024 URINA LYSIS COMPL ETE, IRIS nitrite NEGATI VE negati ve- Not Available [facility] (Lab) [address] [place], [address], 02/18/2024 15:14:55 02/18/20 24 02/18/2024 URINA LYSIS COMPL ETE, IRIS protein NEGATI VE mg/dL negati ve- Not Available [facility] (Lab) [address] [place], [address], 02/18/2024 15:14:55 02/18/20 24 02/18/2024 URINA LYSIS COMPL ETE, IRIS glucose NORMAL mg/dL normal - Not Available [facility] (Lab) [address] [place], [address], 02/18/2024 15:14:55 02/18/20 24 02/18/2024 URINA LYSIS COMPL ETE, IRIS ketones NEGATI VE mg/dL negati ve- Not Available [facility] (Lab) [address] [place], [address], 02/18/2024 15:14:55 02/18/20 24 02/18/2024 URINA LYSIS COMPL ETE, IRIS urobilinogen NORMAL mg/dL normal - Not Available [facility] (Lab) [address] [place], [address], 02/18/2024 15:14:55 02/18/20 24 02/18/2024 URINA LYSIS COMPL ETE, IRIS bilirubin NEGATI VE mg/dL negati ve- Not Available [facility] (Lab) [address] [place], [address], 02/18/2024 15:14:55 02/18/20 24 02/18/2024 URINA LYSIS COMPL ETE, IRIS blood NEGATI VE mg/dL negati ve- Not Available [facility] (Lab) [address] [place], [address], 02/18/2024 15:14:55 02/18/20 24 02/18/2024 URINA LYSIS COMPL ETE, IRIS white blood cells 0-8 /i??h pfi?? 0-8 Not Available [facility] (Lab) [address] [place], [address], 02/18/2024 15:14:55 02/18/20 24 02/18/2024 URINA LYSIS COMPL ETE, IRIS red blood cells 0-4 /i??h pfi?? 0-4 Not Available [facility] (Lab) [address] [place], [address], 02/18/2024 15:14:55 02/18/20 24 02/18/2024 URINA LYSIS COMPL ETE, IRIS bacteria OCCASI ONAL abnormal Not Available [facility] (Lab) [address] [place], [address], 02/18/2024 15:14:55 02/18/20 24 02/18/2024 URINA LYSIS COMPL ETE, IRIS mucous OCCASI ONAL /i??l pfi?? abnormal Not Available [facility] (Lab) [address] [place], [address], 02/18/2024 15:14:55 02/18/20 24 02/18/2024 URINA LYSIS COMPL ETE, IRIS squamous epithelial PACKED FIELD /i??l pfi?? abnormal Not Available [facility] (Lab) [address] [place], [address], 02/18/2024 15:14:55 02/18/20 24 02/18/2024 VITAM IN D 25-HY DROXY [id number] 36.0 NG/mL 30-100 Vitam in D Statu s: Defic ient: <20 ng/mL Insuf ficie nt: 20-29 ng/mL Suffi cient : 30-10 0 ng/mL Not Available [facility] (Lab) [address] [place], [address], 02/18/2024 16:16:19 02/18/20 24 02/18/2024 COMPR EHENS MALKA METAB OLIC PANEL sodium 138 mmol/ L 137-14 5 Not Available [facility] (Lab) [address] [place], [address], 02/18/2024 16:49:24 02/18/20 24 02/18/2024 COMPR EHENS MALKA METAB OLIC PANEL potassium 4.0 mmol/ L 3.5-5. 1 Not Available [facility] (Lab) [address] [place], [address], 02/18/2024 16:49:24 02/18/20 24 02/18/2024 COMPR EHENS MALKA METAB OLIC PANEL chloride 108 mmol/ L 98-107 high Not Available [facility] (Lab) [address] [place], [address], 02/18/2024 16:49:24 02/18/20 24 02/18/2024 COMPR EHENS MALKA METAB OLIC PANEL carbon dioxide 26 mmol/ L 22-30 Not Available [facility] (Lab) [address] [place], [address], 02/18/2024 16:49:24 02/18/20 24 02/18/2024 COMPR EHENS MALKA METAB OLIC PANEL anion gap 8.0 mmol/ L 14-22 low Not Available [facility] (Lab) [address] [place], [address], 02/18/2024 16:49:24 02/18/20 24 02/18/2024 COMPR EHENS MALKA METAB OLIC PANEL glucose 101 mg/dL 70-99 high Not Available [facility] (Lab) [address] [place], [address], 02/18/2024 16:49:24 02/18/20 24 02/18/2024 COMPR EHENS MALKA METAB OLIC PANEL BUN 23 mg/dL 8-19 high Not Available [facility] (Lab) [address] [place], [address], 02/18/2024 16:49:24 02/18/20 24 02/18/2024 COMPR EHENS MALKA METAB OLIC PANEL creatinine 0.62 mg/dL 0.66-1 .25 low Not Available [facility] (Lab) [address] [place], [address], 02/18/2024 16:49:24 02/18/20 24 02/18/2024 COMPR EHENS MALKA METAB OLIC PANEL GFR >60 Refer ence Range : [place] ge GFR Healt hy Adult : >60 mL/mi n/1.7 3 m2 Chron ic Kidne y Disea se: 15-60 mL/mi n/1.7 3 m2 Kidne y Failu re: <15/m L/min /1.73 m2 www.n iddk. nih.g ov The MDRD study equat ion has not been valid ated in child yareli <18 years of age; pregn ant women ; the elder ly >85 years of age; or in some racia l or ethni c subgr oups, such as Hispa nics. Outsi de the valid ated trino eters , estim ated GFR is less accur ate, requi ring clini kate judgm ent on a case- by-ca se basis . Clini kate inter preta tion for other races and ages must be made by the clini diana. The MDRD study equat ion has not been valid ated for the evalu ation of serum creat inine relat ed to nutri jayna l statu s or medic ation usage . For perso ns <18 years of age, a pedia tric GFR calcu lator is avail able on the [facility] websi te: [email or web address] [email or web address]/gf r_cal culat or Not Available [facility] (Lab) [address] [place], [address], 02/18/2024 16:49:24 02/18/2002/18/2024 COMPR EHENS MALKA METAB OLIC PANEL alkaline phosphatase 59 U/L 38-126 Not Available [facility] (Lab) [address] [place], [address], 02/18/2024 16:49:24 02/18/20 24 02/18/2024 COMPR EHENS MALKA METAB OLIC PANEL alanine aminotransfe rase 14 U/L 0-35 Not Available [facility] (Lab) [address] [place], [address], 02/18/2024 16:49:24 02/18/20 24 02/18/2024 COMPR EHENS MALKA METAB OLIC PANEL aspartate aminotransfe rase 21 U/L 15-37 Not Available [facility] (Lab) [address] [place], [address], 02/18/2024 16:49:24 02/18/2002/18/2024 COMPR EHENS MALKA METAB OLIC PANEL bilirubin, total 0.40 mg/dL 0.20-1 .30 Not Available [facility] (Lab) [address] [place], [address], 02/18/2024 16:49:24 02/18/20 24 02/18/2024 COMPR EHENS MALKA METAB OLIC PANEL calcium 9.1 mg/dL 8.4-10 .2 Not Available [facility] (Lab) [address] [place], [address], 02/18/2024 16:49:24 02/18/20 24 02/18/2024 COMPR EHENS MALKA METAB OLIC PANEL total protein 6.8 g/dL 6.3-8. 2 Not Available [facility] (Lab) [address] [place], [address], 02/18/2024 16:49:24 02/18/20 24 02/18/2024 COMPR EHENS MALKA METAB OLIC PANEL albumin 4.3 g/dL 3.4-5. 0 Not Available [facility] (Lab) [address] [place], [address], 02/18/2024 16:49:24 02/18/20 24 02/18/2024 COMPR EHENS MALKA METAB OLIC PANEL globulin 2.5 g/dL 2.6-4. 2 low Not Available [facility] (Lab) [address] [place], [address], 02/18/2024 16:49:24 02/18/20 24 02/18/2024 COMPR EHENS MALKA METAB OLIC PANEL A/G ratio 1.7 ratio 1.0-2. 0 Not Available [facility] (Lab) [address] [place], [address], 02/18/2024 16:49:24 02/18/20 24 02/18/2024 LIPID PANEL cholesterol 177 mg/dL 140-19 9 NIH ERIC NSUS RECOM MENDA TION FOR HARRY STERO L: ADULT CHILD LOW RISK: <200 <170 BORDE RLINE : <200- 239 ----- HIGH RISK: >240 >200 Not Available [facility] (Lab) [address] [place], [address], 02/18/2024 16:49:34 02/18/20 24 02/18/2024 LIPID PANEL triglyceride s 43 mg/dL 0-150 NIH ERIC NSUS REPOR T RECOM MENDA TION FOR TRIGL YCERI ERICH: ADULT CHILD LOW RISK: <150 ----- BODER LINE: 150-1 99 ----- HIGH RISK: >200 ----- Not Available [facility] (Lab) [address] [place], [address], 02/18/2024 16:49:34 02/18/20 24 02/18/2024 LIPID PANEL HDL cholesterol 56 mg/dL 40- Not Available [facility] (Lab) [address] [place], [address], 02/18/2024 16:49:34 02/18/20 24 02/18/2024 LIPID PANEL LDL cholesterol, calculated 112 mg/dL 0-130 NIH ERIC NSUS REPOR T RECOM MENDA TIONS FOR LDL: ADULT CHILD LOW RISK <130 <110 (OPTI MAL LDL) <100 ----- BORDE RLINE : 130-1 59 ----- HIGH RISK: >160 >130 A TRIGL YCERI DE RESUL T >400 INVAL IDATE S THE CALCU LATIO N FOR LDL FRACT IONAT ION - THE LDL RESUL T WILL NOT BE REPOR CHIDI. Not Available [facility] (Lab) [address] [place], [address], 02/18/2024 16:49:34 02/18/20 24 02/18/2024 URIC ACID SERUM uric acid 2.6 mg/dL 2.5-6. 2 Not Available [facility] (Lab) [address] [place], [address], 02/18/2024 16:49:36 02/18/20 24 02/18/2024 MAGNE SIUM magnesium 2.0 mg/dL 1.6-2. 3 Not Available [facility] (Lab) [address] [place], [address], 02/18/2024 16:49:39 02/18/20 24 02/18/2024 TSH W/REF DINA FT4 TSH with reflex free T4 1.150 uIU/m L 0.465- 4.680 Not Available [facility] (Lab) [address] [place], [address], 02/18/2024 16:51:36 02/18/20 24 02/18/2024 VITAM IN B12 (CARIDAD MADISON ) vb12 801 pg/mL 239-93 1 Not Available [facility] (Lab) [address] [place], [address], 02/18/2024 16:56:54 02/18/20 24 02/18/2024 FOLAT E, SERUM /PLAS MA folate 7.43 NG/mL 2.76-2 0.0 Not Available [facility] (Lab) [address] [place], [address], 02/18/2024 16:56:59 02/18/20 24 02/18/2024 HEMOG LOBIN A1C HA1C 5.3 % 4.0-6. 0 Diabe ruben Scree jose Crite pa: <5.7% Consi stent with absen ce of diabe ruben 5.7-6 .4% Consi stent with incre ased risk for diabe ruben (pred iabet es) >OR=6 .5% Consi stent with diabe ruben REFER ENCE: Diabe ruben Care 2016, 39(Wade ppl.1 ):s13 -s22 Not Available [facility] (Lab) [address] [place], [address], 02/18/2024 21:49:56 Result Notes None recorded. Problems Name Problem SNOMED Code Status Onset Date Resolution Date Notes Provider Name and Address Organization Details Recorded Time Chronic neck pain 4657156320767 Active 2022 Daniel Conrad MD [address], [address], [employer] 3 14:19:59 Neuropathy 041527352 Active 2022 Daniel Conrad MD [address], [place], [address], [facility] 3 14:20:12 Paresthesia of lower extremity 516021975 Active 2022 Daniel Conrad MD [address], [place], [address], [employer] [facility] 3 14:21:18 Overweight 979888999 Active 2022 Daniel Conrad MD [address], [place], [address], [employer] [facility] 3 14:22:24 Pain of left knee joint 3838639747426 07 Active 2022 Daniel Conrad MD [address], [place], [address], [employer] [facility] 3 14:22:41 Cervical radiculopat hy 55523324 Active 2022 Daniel Conrad MD [address], [place], [address], [employer] [facility] 3 14:24:30 Prolapsed cervical interverteb ral disc 964183828 Active 2022 Daniel Conrad MD [address], [place], [address], [employer] [facility] 3 14:50:42 Chronic pain 76582863 Active 2022 Daniel Conrad MD [address], [place], [address], [employer] [facility] 3 14:51:23 Seasonal allergic rhinitis 582829234 Active 2022 Daniel Conrad MD [address], [place], [address], [employer] [facility] 3 11:14:03 Asthma 378557172 Active 2022 Daniel Conrad MD [address], [place], [address], [employer] [facility] 3 11:14:58 Hyperlipide debby 97223259 Active 2022 Daniel Conrad MD [address], [place], [address], [employer] 3 09:24:33 Hyperkalemi a 36080548 Active 2022 Daniel Conrad MD [address], [place], [address], [employer] 3 09:24:47 Folliculiti s 11696229 Active 2022 Daniel Conrad MD [address], [place], [address], [facility] 3 10:37:12 Keratosis pilaris 0315905 Active 2023 Daniel Conrad MD [address], [place], [address], [employer] 4 10:06:05 Ex-cigarett e smoker 983677180 Active 2023 Daniel Conrad MD [address], [place], [address], [facility] 4 09:16:49 Problem Notes None recorded. Medical Equipment None Reported. Allergies Allergen ID Allergen Name Allergen Category Reaction Reaction Severity Criticality Documentation Date Start Date Code Code System Note Provider Name and Address Organization Details Recorded Time 35995 acetamino phen medicatio n hives severe high 01/14/2023 161 RxNorm Vito Boudreaux null, [employer] 3 14:06:14 Medications Name Sig Start Date Stop Date Status Note LastModified by Organization Details LastModified Time cyclobenzap rine 10 mg tablet Take 1 tablet every 12 hours by oral route as needed for 30 days. active Not Available Not Available No t Available doxycycline hyclate 100 mg capsule TAKE 1 CAPSULE BY MOUTH TWICE DAILY FOR 15 DAYS DIRECTED 08/28 completed Not Available Not Available Not Available tretinoin 0.01 % topical gel APPLY TOPICALLY TO UPPER ARMS EVERY DAY AT BEDTIME FOR RASH active Not Available Not Available No t Available diclofenac sodium 75 mg tablet,teressa yed release Take 1 tablet every 12 hours by oral route as needed for 30 days. 2023 active Not Available Not Available Not Avai lable montelukast 10 mg tablet Take 1 tablet every day by oral route in the evening for 30 days. 08/28 completed Not Available Not Available Not Available albuterol sulfate HFA 90 mcg/actuati on aerosol inhaler Inhale 2 puffs every 4-6 hours by inhalatio n route as needed for 15 days. 2023 active Not Available Not Available Not Avai lable fluticasone propionate 50 mcg/actuati on nasal spray,suspe nsion [place] 2 sprays every day by intranasa l route as needed for 30 days. 2023 active Not Available Not Available Not Avai lable Vitals Date Recorded Body height Body mass index (BMI) Body weight Body temperature Heart rate Respiratory rate Oxygen saturation Oxygen saturation in Arterial blood by Pulse oximetry Systolic blood pressure Diastolic blood pressure Provider Name and Address Organization Details Last Updated DateTime 3 157.48 cm 28.4 kg/m2 81174.2 2 g 98.49 [degF] 86 /min 16 /min 98 % 98 % 126 mm[Hg] 70 mm[Hg] [facility]ito [facility] 3 10:30:50 Date Recorded Body height Body mass index (BMI) Body weight Body temperature Heart rate Respiratory rate Oxygen saturation Oxygen saturation in Arterial blood by Pulse oximetry Systolic blood pressure Diastolic blood pressure Provider Name and Address Organization Details Last Updated DateTime 4 157.48 cm 26.7 kg/m2 79349.1 9 g 98.1 [degF] 80 /min 16 /min 99 % 99 % 108 mm[Hg] 62 mm[Hg] Vito XING [facility] 4 09:59:10 Date Recorded Body height Body mass index (BMI) Body weight Body temperature Heart rate Respiratory rate Oxygen saturation Oxygen saturation in Arterial blood by Pulse oximetry Systolic blood pressure Diastolic blood pressure Provider Name and Address Organization Details Last Updated DateTime 4 157.48 cm 24.9 kg/m2 35983.2 6 g 97.9 [degF] 76 /min 16 /min 99 % 99 % 110 mm[Hg] 66 mm[Hg] Vito Boudreaux [facility] [employer] 4 08:59:37 Date Recorded Body height Body mass index (BMI) Body weight Body temperature Heart rate Pain severity - 0-10 verbal numeric rating [Score] - Reported Systolic blood pressure Diastolic blood pressure Provider Name and Address Organization Details Last Updated DateTime 4 157.48 cm 24.9 kg/m2 70289.6 6 g 99 [degF] 80 /min 5 118 mm[Hg] 76 mm[Hg] Amy Simmons RN [facility] [employer] 4 16:24:30 Date Recorded Oxygen saturation Oxygen saturation in Arterial blood by Pulse oximetry Provider Name and Address Organization Details Last Updated DateTime 03/05/2024 98 % 98 % Daniel Conrad MD [address], [address], [facility] [employer] 03/05/2024 16:25:28 Social History Question Answer Notes LastModified by Organizat ion Details LastModified Time Tobacco Smoking Status Former Smoker Vito Boudreaux [place], [facility] [employer] 01/14/2023 14:11:43 Do You Have An Advance Directive? No Information not available 01/14/2023 What Is Your Level Of Alcohol Consumption? None Information not available 01/14/2023 If You Are , What Was Your Level Of Alcohol Consumption Prior To ? None Information not available 01/14/2023 Is Blood Transfusion Acceptable In An Emergency? Yes Information not available 01/14/2023 What Is Your Level Of Caffeine Consumption? None Information not available 01/14/2023 What Is Your Code Status? Full Code Information not available 01/14/2023 In The 14 Days Before Symptom Onset, Have You Had Close Contact With A Laboratory-confi rmed COVID-19 While That Case Was Ill? No Information not available 01/14/2023 In The 14 Days Before Symptom Onset, Have You Had Close Contact With A Person Who Is Under Investigation For COVID-19 While That Person Was Ill? No Information not available 01/14/2023 What Type Of Diet Are You Following? REGULAR Information not available 01/14/2023 What Is The Highest Grade Or Level Of School You Have Completed Or The Highest Degree You Have Received? [id number] Information not available 01/14/2023 Have There Been Any Changes To Your Family Or Social Situation? No Information not available 01/14/2023 When Did You Quit Smoking? 11-15yearssincelast cigarette Information not available 01/14/2023 Are There Any Guns Present In Your Home? Yes Information not available 01/14/2023 Do You Use Insect Repellent Routinely? Yes Information not available 01/14/2023 Where Do You Live? SingleLevelHouse Information not available 01/14/2023 Are You Following A Low Salt Diet? No Information not available 01/14/2023 Do You Have A Medical Power Of Burnishing Machine Operator? No Information not available 01/14/2023 How Many Children Do You Have? 1 Information not available 01/14/2023 Do You Have Any Pets? Yes Information not available 01/14/2023 Do You Use Your Seat Belt Or Car Seat Routinely? Yes Information not available 01/14/2023 Are You Sexually Active? No Information not available 01/14/2023 Do You Have Smoke And Carbon Monoxide Detectors In Your Home? Yes Information not available 01/14/2023 Are You Passively Exposed To Smoke? Yes Information not available 01/14/2023 Are There Any Smokers In Your House? Yes Information not available 01/14/2023 Do You Participate In Social Media? Yes Information not available 01/14/2023 Do You Feel Stressed (tense, Restless, Nervous, Or Anxious, Or Unable To Sleep At Night)? [id number] Information not available 01/14/2023 Do You Use Any Illicit Or Recreational Drugs? No Information not available 01/14/2023 Do You Use Sunscreen Routinely? Yes Information not available 01/14/2023 Has Tobacco Cessation Counseling Been Provided? No Information not available 01/14/2023 Have You Recently Traveled Abroad? No Information not available 01/14/2023 Do You Have Any Dietary Restrictions? Yes Information not available 01/14/2023 Do You Or Have You Ever Used Any Other Forms Of Tobacco Or Nicotine? No Information not available 01/14/2023 Sex: Female Functional Status Question Answer Note LastModified by Organizat ion Details LastModified Time What is your exercise level? Occasional Information not available 01/14/2023 Mental Status None recorded. Family History Nothing Reported. Medical History Condition Response BLINDNESS N RHEUMATIC FEVER N KIDNEY STONES N BLADDER PROBLEMS N MRSA N OTHER # 1 N POLIO N LUNG DISEASE/DISORDER N HISTORY OF DRUG ABUSE N RADIATION / CHEMOTHERAPY N COPD N Other # 2 N BLOOD DISEASES N SURGERY N EAR OR HEARING PROBLEMS N MUMPS N SHINGLES N BOWEL PROBLEMS N FEMALE PROBLEMS / INFECTIONS N DEPRESSION (INCLUDING POST ) N FAILED BACK SYNDROME N STROKE/TIA N THYROID DISEASE N ULCERS N BENIGN PROSTATIC HYPERPLASIA N MEASLES N CERVICALGIA N HYPOTENSION N TB SKIN TEST N MYOCARDIAL INFARCTION N PARAPELGIA N OBESITY N GERD/NAUSEA N ANEURYSM N URINARY/BLADDER/KIDNEY PROBLEMS N CORONARY ARTERY DISEASE (CAD) N MENIERE'S DISEASE N Do you have Advance directive? N ADDICTION CONCERNS N ENDOMETRIOSIS N USE OF BLOOD THINNERS N SKIN PROBLEMS N EMPHYSEMA N GASTROINTESTINAL DISORDER N PERIPHERAL ARTERY DISEASE N MUSCLE,JOINT OR BONE PROBLEMS N GASTROINTESTINAL BLEEDING N BLOOD CLOTS N ASTHMA N Abdominal Pain N CATARACTS N ARTERIAL INSUFFICIENCY N ERECTILE DYSFUNCTION N GI PROBLEMS N CHF N Low Testosterone N NEUROPATHY N INFERTILITY N AIDS/HIV N FRACTURES N CHEMOTHERAPY / RADIATION N VISION/EYE PROBLEMS N LIVER DISEASE N HYPERTENSION N TOURETTE'S N ANXIETY DISORDER Y BLOOD TRANSFUSION N ANEMIA/BLOOD DISORDER N CHRONIC EAR INFECTIONS N BRONCHITIS N TUBERCULOSIS N GLAUCOMA N FOOT PROBLEM N DIVERTICULITIS N CHICKENPOX N SLEEP APNEA N BACK INJECTIONS N ALLERGIES/HAYFEVER N INFECTIOUS DISEASE N HEART ARRHYTHMIA N PROSTATE N ESRD N INSOMNIA N HIGH CHOLESTEROL / HYPERLIPIDEMIA N HYPERTHYROIDISM N EYE PROBLEMS N PVD N EATING DISORDER N EDEMA N CHRONIC PAIN SYNDROME N CAROTID BLOCKAGE N CONSTIPATION N BACK / NECK PROBLEMS N HAVE YOU BEEN HOSPITALIZED OR SEEN IN [facility] IN THE PAST YEAR ? N ATHEROSCLEROSIS N BREAST PROBLEMS N DIALYSIS N POLYCYSTIC OVARIES N ECZEMA N FIBROMYALGIA N OSTEOPOROSIS N ARTHRITIS N NO SIGNIFICANT PAST MEDICAL HISTORY N APPENDICITIS N DIABETES, TYPE N BAD TEETH N VON WILLIBRAND'S DISEASE N HEARTBURN / REFLUX N ADD/ADHD N AUTISM SPECTRUM DISORDER (ASD) N POST LAMINECTOMY SYNDROME N HEPATITIS / LIVER DISEASE N PULMONARY DISEASE N GOUT N SLEEP DISORDER N ALZHEIMER'S DISEASE N PAIN N HERPES N DEMENTIA N HEADACHES/MIGRAINES N SEIZURES/EPILEPSY N VASCULAR DISEASE N PACEMAKER N DIZZINESS N HEART DISEASE/HEART PROBLEMS N KIDNEY DISEASE N DEVELOPMENTAL OR BEHAVIORAL DISORDERS N MULTIPLE SCLEROSIS N SCARLET FEVER N MENTAL DISORDER/ILLNESS N NEUROPSYCHOLOGICAL N CARDIAC ARRHYTHMIA N CANCER: SPECIFY N PNEUMONIA N ATRIAL FIBRILLATION N Gall Stones N PULMONARY EMBOLISM N AUTOIMMUNE DISEASE N Gynecological History Statement/Question Response Current Control Method None Obstetrics History GPAL:G 1 P 1 0 0 0 Type Value Full Term 1 Premature 0 Total 1 Past Encounters Encounter ID Performer Location Encounter Start Date Encounter Closed Date Diagnosis/Indication Diagnosis SNOMED-CT Code Diagnosis ICD10 Code Diagnosis Note [id number] Daniel Conrad MD [place] [id number] 01/14/2023 14:00:43 01/14/2023 14:56:08 Chronic neck pain 6796941841 107 M54.2 Neuropathy 704842579 G62 .9 Paresthesi a of lower extremity 124008551 R20.2 Overweight 231628771 E66 .3 Pain of le ft knee joint 8002830236 27953 M25.562 Cervical radiculopathy 49675892 M54.12 Prolapsed cervical intervertebral disc 938951045 M50.20 Chronic pain 43052047 G8 9.29 [id number] Daniel Conrad MD [address] [address] 01/30/2023 10:52:51 01/30/2023 11:54:55 Adult health examination 833268602 Z00.00 Chronic neck pain 766420 0423 107 M54.2 Pain of le ft knee joint 8173854279 21321 M25.562 Neuropathy 843635298 G62 .9 Overweight 148557635 E66 .3 Seasonal a llergic rhinitis 501988162 J30.2 Asthma 581890314 J45.90 9 Chronic pain 85576113 G8 9.29 [id number] Daniel Conrad MD [address] [address] 02/14/2023 09:10:35 02/14/2023 09:45:17 Chronic neck pain 7680418756 107 M54.2 Pain of le ft knee joint 6268224113 00029 M25.562 Chronic Neuropathy 495048269 G62 .9 Overweight 786251340 E66 .3 Seasonal a llergic rhinitis 823676971 J30.2 Asthma 711363339 J45.90 9 Chronic pain 86624899 G8 9.29 Hyperlipidemia 47792972 E78.5 Hyperkalemia 78277793 E8 7.5 [id number] Daniel Conrad MD [address] [address] 03/19/2023 10:16:27 03/19/2023 10:37:29 [id number] Daniel Conrad MD [address] [address] 05/01/2023 09:25:05 05/01/2023 09:56:30 [id number] Daniel Conrad MD [address] [address] 05/30/2023 10:23:58 05/30/2023 10:45:35 Hyperlipidemia 16427912 E78.5 Hyperkalemia 83610244 E8 7.5 Chronic neck pain 716101 2621 107 M54.2 Pain of le ft knee joint 6100518214 01230 M25.562 Chronic Neuropathy 203906544 G62 .9 Overweight 059973880 E66 .3 Seasonal a llergic rhinitis 352611535 J30.2 Asthma 284170211 J45.90 9 Chronic pain 62019269 G8 9.29 Folliculitis 14654759 L7 3.9 [id number] Daniel Conrad MD [address] [address] 08/19/2023 09:06:01 08/19/2023 12:24:06 [id number] Daniel Conrad MD [address] [address] 08/29/2023 09:53:47 08/29/2023 10:19:35 Hyperlipidemia 86134280 E78.5 Diet controlled - improved Hyperkalemia 31512858 E8 7.5 resolved Chronic neck pain 616143 9070 107 M54.2 Pain of le ft knee joint 8954246912 42756 M25.562 Chronic Neuropathy 812991948 G62 .9 Overweight 428808570 E66 .3 Seasonal a llergic rhinitis 857428530 J30.2 Asthma 026881824 J45.90 9 Chronic pain 05555378 G8 9.29 Keratosis pilaris 056099 5 Q82.8 [id number] Daniel Conrad MD [place] [id number] 02/18/2024 08:48:20 02/18/2024 09:22:14 Hyperlipidemia 31964551 E78.5 Diet controlled - improved Hyperkalemia 57699142 E8 7.5 resolved Chronic neck pain 501205 0658 107 M54.2 Pain of le ft knee joint 1059399182 62689 M25.562 Chronic Neuropathy 799450234 G62 .9 Overweight 633665895 E66 .3 Seasonal a llergic rhinitis 268604524 J30.2 Asthma 900230148 J45.90 9 Chronic pain 23805877 G8 9.29 Keratosis pilaris 596157 5 Q82.8 Adult heal th examination 465680241 Z00.00 Ex-cigarette smoker 2810 25606 Z87.953 [id number] Daniel Conrad MD [address] [address] 03/05/2024 16:18:26 03/05/2024 16:40:46 Hyperlipidemia 82214051 E78.5 Diet controlled - improved Hyperkalemia 55980618 E8 7.5 resolved Chronic neck pain 457345 5008 107 M54.2 Pain of le ft knee joint 3980139705 51419 M25.562 Chronic Neuropathy 290578719 G62 .9 Seasonal a llergic rhinitis 410462113 J30.2 Asthma 699011427 J45.90 9 Keratosis pilaris 712323 5 Q82.8 Ex-cigarette smoker 4470 90634 Z87.891 Health Concerns Section Related Observation LastModified by Organization Detai ls LastModified Time None Recorded Concern Status LastModified by Organization Details LastModified Time None Recorded Advance Directives Directive N: Payers Encounter Date Sequence Insurance Name Policy Number Policy Grady Covered Member ID Grady Member ID Guarantor Name 05/30/2023 1 [employer] [place] [employer] (MEDICARE - MEDICAID REPLACEMENT HMO) [id number] 0003 An Douglas [id number] An Douglas 08/19/2023 1 [employer] [place] [employer] [place]MEDICARE - MEDICAID REPLACEMENT HMO) [id number] 0003 An Douglas [id number] An Douglas 08/29/2023 1 [employer] [facility] [place] (MEDICARE - MEDICAID REPLACEMENT HMO) [id number] 0003 An Douglas [id number] An Douglas 02/18/2024 1 [employer] [place] [employer] [place]MEDICARE - MEDICAID REPLACEMENT HMO) [id number] 0003 An Douglas [id number] Na Douglas 03/05/2024 1 [employer] [place] [employer] (MEDICARE - MEDICAID REPLACEMENT HMO) [id number] 0003 An Douglas [id number] An Douglas Notes Date Note Type Note Provider Name and Address Organization Details Recorded Time 05/30/2023 text/html Pt is here for f /u on her labs and chronic conditions. Still same concerns as before. Denies any new concern.C/o chronic neck and upper back area pain for last several years. Pt has seen few specialists in the past for this and due to her insurance not covering them. Pt never had any procedure/surgery done for this. Pt had MRI c-spine wo done in 07/07. Pt says she lost her job in 09/06. Denies any workman's comp. C/o chronic tingling and numbness over all of her body for last several years. C/o Lt knee area pain and cracking for last few years. Pt denies any trauma to it in the past. Daniel Conrad MD [address] [place] [address], [facility] [address], [place], [address], [facility] [employer] 05/30/2023 10:43:22 08/29/2023 text/html Pt is here for f /u on her labs and chronic conditions. Doing overall much better since last visit. Denies any new concern. Pt got rid of all her pets and since than, her allergies area much better.C/o chronic neck and upper back area pain for last several years. Pt has seen few specialists in the past for this and due to her insurance not covering them. Pt never had any procedure/surgery done for this. Pt had MRI c-spine wo done in 07/07. Pt says she lost her job in 09/06. Denies any workman's comp. C/o chronic tingling and numbness over all of her body for last several years. C/o Lt knee area pain and cracking for last few years. Pt denies any trauma to it in the past. Daniel Conrad MD [address], [facility] [address], [place], [address], [employer] 08/29/2023 10:14:55 02/18/2024 text/html Pt is here for h er annual exam. Doing overall much better since last visit. Denies any new concern. Pt got rid of all her pets and since than, her allergies area much better.C/o chronic neck and upper back area pain for last several years. Pt has seen few specialists in the past for this and due to her insurance not covering them. Pt never had any procedure/surgery done for this. Pt had MRI c-spine wo done in 07/07. C/o Lt knee area pain and cracking for last few years. Pt denies any trauma to it in the past. Daniel Conrad MD [address], [facility] [address], [place], [address], [employer] 02/18/2024 09:17:26 03/05/2024 text/html Pt is here for f /u on her annual labs. Doing overall much better than before. Denies any problem with meds. Denies any new concern. Pt got rid of all her pets and since than, her allergies area much better. Pt has not seen Pain clinic yet. Pt has their info.C/o chronic neck and upper back area pain for last several years. Pt has seen few specialists in the past for this and due to her insurance not covering them. Pt never had any procedure/surgery done for this. Pt had MRI c-spine wo done in 07/07. C/o Lt knee area pain and cracking for last few years. Pt denies any trauma to it in the past. Daniel Conrad MD [address] [place] [address], [place], [address], [place] [facility] [employer] [facility] 03/05/2024 16:38:24 OBGyn Episode No OBEpisode recorded.
== END 2024-07-24 08:24 | disposition home or self-care (01) ==
PROVIDERS: PCP Family Medicine; Visit Provider Psychiatry & Neurology Neurology
DX: M47.812 Spondylosis without myelopathy or radiculopathy, cervical region (principal); R29.2 Abnormal reflex
CPT/HCPCS: 72141

== ENCOUNTER 2024-11-07 07:06 | Outpatient (CLI) | payer OTHER, SELFPAY ==
--- OUTSIDE RECORDS SUMMARY | 2024-11-07 07:09 | XMS_ITS | Data Portability ---
Author Organization [place] - [facility] [place], Main Office Address [address] [place] [id number] Care Team Providers Care Perianesthesia Rn Name Role Phone DANIEL CONRAD Primary Care Provider Assessment Encounter Date Assessment Date Assessment LastModified by Organization Details LastModified Time 08/29/2023 08/29/2023 38 yo F with - [...] with Ortho as per schedule. Cont f/u Epic Anesthesia Analyst as per schedule. Offered to refer to Neuro; but pt declined. HM: WWE - 03/08, normal as per pt. Cont f/u with Gyne/PONY TRIMMER as per schedule. Flu - Pt declined. Tdap, Gardasil - At pharmacy/HD. F/u in 3-5 months. Annual labs in 02/07. [email or web address] Not available 08/29/2023 10:14:05 02/18/2024 02/18/2024 38 [...] with Ortho as per schedule. Cont f/u Epic Anesthesia Analyst as per schedule. Offered to refer to Neuro; but pt declined. Pt declined for PT. HM: WWE - 03/08, normal as per pt. Cont f/u with Gyne/PONY TRIMMER as per schedule. Flu - Pt declined. Tdap, Gardasil - At pharmacy/HD. F/u in 2-3 weeks. Annual labs in 03/11. [email or web address] Not available 02/18/2024 09:16:40 03/05/2024 03/05/2024 38 [...] with Ortho as per schedule. Cont f/u Epic Anesthesia Analyst as per schedule. Offered to refer to Neuro; but pt declined. Pt declined for PT. Pt declined for cxr. HM: WWE - 03/08, normal as per pt. Cont f/u with Gyne/PONY TRIMMER as per schedule. Flu - Pt declined. Tdap, Gardasil - At pharmacy/HD. F/u in 6 months. Lipids in 09/08. Annual labs in 03/11. Not available 03/05/2024 16:38:09 09/02/2024 09/02/2024 39 yo F with - HLD (diet controlled), improved - CHRONIC NECK PAIN - CERVICAL SPONDYLOSIS - LT KNEE PAIN, CHRONIC - NEUROPATHY - ASTHMA, intermittent - KERATOSIS PILARIS - H/O OVERWEIGHT - EX-SMOKER MRI c-spine wo: 07/24/24. Annual labs: 02/18/24. Annual labs, ESR, ARNALDO, RF: 01/30/23. X-ray C-spine: 01/16/23. X-ray Lt knee: 01/16/23. D/w pt in detail about her findings, recent labs & imagines and further plan of care. Explained about different options for her. Meds as directed. Diet and exercise explained in detail. F/u with Pain clinic as per schedule. F/u with Derm as per schedule. Cont f/u with Ortho as per schedule. Cont f/u Epic Anesthesia Analyst as per schedule. Cont f/u Neuro at [facility] as per schedule. Pt declined for PT. Pt declined for cxr. HM: WWE - 03/08, normal as per pt. Cont f/u with Gyne/PONY TRIMMER as per schedule. Flu - Pt declined. Tdap, Gardasil - At pharmacy/HD. F/u in 6 months. Annual labs in 03/11. [email or web address] Not available 09/02/2024 16:43:37 Plan of Treatment Reminders Order Date Submit Date Provider Last Modified By Organization Details Last Modified Time Details Appointments Physical/ Annual Wellness 30 2024 08:00A Derek Conrad MD Not available Not available Not available Lab lipid panel, serum 2023 025 [facility] (Lab), [address] [place], [address], 08/26/2024 14:53:39 uric acid, serum or plasma 2023 024 [facility] (Lab), [address] [place], [address], 02/18/2024 16:49:37 CBC w/ auto diff 2023 024 [facility] (Lab), [address] [place], [address], 02/18/2024 14:30:17 CMP, serum or plasma 2023 024 [facility] (Lab), [address] [place], [address], 02/18/2024 16:49:24 lipid panel, serum 2023 024 [facility] (Lab), [address] [place], [address], 02/18/2024 16:49:34 TSH, serum, reflex free T4 [address] (Lab), [address] [place], [address], 02/25/2024 08:37:25 urinalysi s complete, reflex culture [address] (Lab), [address] [place], [address], 02/25/2024 08:37:25 HbA1c (hemoglob in A1c), blood [address] (Lab), [address] [place], [address], 02/25/2024 08:37:26 vitamin B12 + folate, serum or blood [address] (Lab), [address] [place], [address], 02/25/2024 08:37:26 vitamin D3, 25-hydrox y, serum 2023 024 [facility] (Lab), [address] [place], [address], 02/18/2024 16:16:19 magnesium , serum or plasma 2023 024 [facility] (Lab), [address] [place], [address], 02/18/2024 16:49:39 Referral dermatolo gist referral - Please call patient to schedule an appointme nt. 2023 024 [email or web address] Aniyah Sandoval MD, [address] [facility], [place] [address], [place], [address], 09/27/2023 08:53:48 Procedures None recorded. Surgeries None recorded. Imaging None recorded. Medication Orders diclofena c sodium 75 mg tablet,de layed release [email or web address] [id number], [address] [place], [place], [id number], 09/02/2024 16:30:19 albuterol sulfate HFA 90 mcg/actua tion aerosol inhaler 2024 025 [facility], [address], [place], [id number], 09/02/2024 16:29:30 fluticaso ne propionat e 50 mcg/actua tion nasal spray,[facility] pension [email or web address] [facility], [address], [place], [id number], 09/02/2024 16:30:19 diclofena c sodium 75 mg tablet,de layed release [email or web address] [facility]16894, [address], [place], [id number], 03/05/2024 16:30:31 albuterol sulfate HFA 90 mcg/actua tion aerosol inhaler 2023 024 [facility] #54037, [address], [place], [place], [id number], 03/05/2024 16:30:34 fluticaso ne propionat e 50 mcg/actua tion nasal spray,[facility] penon 2023 024 [facility] #05174, [address], [place], [place], [id number], 03/05/2024 16:30:27 diclofena c sodium 75 mg tablet,de layed release 2023 024 [facility] #28944, [address], [place], [place], [id number], 02/18/2024 09:11:02 fluticaso ne propionat e 50 mcg/actua tion nasal spray,[facility] 2023 024 [email or web address] [facility] #26258, [address], [place], [place], [id number], 03/05/2024 16:21:44 albuterol sulfate HFA 90 mcg/actua tion aerosol inhaler 2023 024 [email or web address] [facility] #37974, [address], [place], [place], [id number], 02/18/2024 09:05:50 diclofena c sodium 75 mg tablet,de layed release 2023 024 [facility] #41468, [address], [place], [place], [id number], 08/29/2023 10:04:15 cyclobenz aprine 10 mg tablet 2023 024 [facility] #72609, [address], [place], [place], [id number], 08/29/2023 10:04:17 fluticaso ne propionat e 50 mcg/actua tion nasal spray,maria pension 2023 024 [email or web address] [facility] #24192, [address], [place], [place], [id number], 03/05/2024 16:21:44 albuterol sulfate HFA 90 mcg/actua tion aerosol inhaler 2023 024 [email or web address] [facility] #22000, [address], [place], [place], [id number], 08/29/2023 10:04:15 Patient TargetsNo targets recorded. Patient Instructions Encounter Date Encounter Id Patient Instructions Last Modified By Organization Details Last Modified Time 08/29/2023 [id number] high cholesterol : care instructions [email or web address] Not available 08/29/2023 10:04:08 02/18/2024 [id number] high cholesterol : care instructions [email or web address] Not available 02/18/2024 09:05:16 03/05/2024 [id number] high cholesterol : care instructions [email or web address] Not available 03/05/2024 16:30:21 09/02/2024 [id number] high cholesterol : care instructions [email or web address] Not available 09/02/2024 16:29:24 Reason for Referral Dispatch Clerk Referral for K eratosis pilaris Please call patient to schedule an appointment. Referring Physician: Daniel Conrad, Family Medicine, Encounter Date: 08/29/2023 Results Created Date Observation Date Name Description Value Unit Range Abnormal Flag Note LastModifiedBy Organization Detail LastModifiedTime 08/19/19 24 08/19/2023 LIPID PANEL cholesterol 146 mg/dL 140-19 9 NIH ERIC NSUS RECOM MENDA TION FOR HARRY STERO L: ADULT CHILD LOW RISK: <200 <170 BORDE RLINE : <200- 239 ----- HIGH RISK: >240 >200 Not Available [facility] ([facility]) [address] [place], [address], 08/19/2023 18:42:02 08/19/19 24 08/19/2023 LIPID PANEL triglyceride s 107 mg/dL 0-150 NIH ERIC NSUS REPOR T RECOM MENDA TION FOR TRIGL YCERI ERICH: ADULT CHILD LOW RISK: <150 ----- BODER LINE: 150-1 99 ----- HIGH RISK: >200 ----- Not Available [facility] (Lab) [address] [place], [address], 08/19/2023 18:42:02 08/19/19 24 08/19/2023 LIPID PANEL HDL cholesterol 32 mg/dL 40- low Not Available [facility] (Lab) [address] [place], [address], 08/19/2023 18:42:02 08/19/19 24 08/19/2023 LIPID PANEL [...] WILL NOT BE REPOR CHIDI. Not Available [facility] (Lab) [address] [place], [address], 08/19/2023 18:42:02 08/19/19 24 08/19/2023 BASIC METAB OLIC PANEL sodium 141 mmol/ L 137-14 5 Not Available [facility] (Lab) [address] [place], [address], 08/19/2023 18:42:07 08/19/19 24 08/19/2023 BASIC METAB OLIC PANEL potassium 4.3 mmol/ L 3.5-5. 1 Not Available [facility] (Lab) [address] [place], [address], 08/19/2023 18:42:07 08/19/19 24 08/19/2023 BASIC METAB OLIC PANEL chloride 105 mmol/ L 98-107 Not Available [facility] (Lab) [address] [place], [address], 08/19/2023 18:42:07 08/19/19 24 08/19/2023 BASIC METAB OLIC PANEL carbon dioxide 29 mmol/ L 22-30 Not Available [facility] (Lab) [address] [facility] [place], [address], 08/19/2023 18:42:07 08/19/19 24 08/19/2023 BASIC METAB OLIC PANEL anion gap 11.3 mmol/ L 14-22 low Not Available [facility] (Lab) [address] [place], [address], 08/19/2023 18:42:07 08/19/19 24 08/19/2023 BASIC METAB OLIC PANEL glucose 97 mg/dL 70-99 Not Available [facility] (Lab) [address] [place], [address], 08/19/2023 18:42:07 08/19/19 24 08/19/2023 BASIC METAB OLIC PANEL BUN 11 mg/dL 8-19 Not Available [facility] (Lab) [address] [place], [address], 08/19/2023 18:42:07 08/19/19 24 08/19/2023 BASIC METAB OLIC PANEL creatinine 0.59 mg/dL 0.66-1 .25 low Not Available [facility] (Lab) [address] [place], [address], 08/19/2023 18:42:07 08/19/19 24 08/19/2023 BASIC METAB OLIC PANEL GFR >60 Refer ence Range : [place] GFR Healt hy Adult : >60 [...] calcu lator is avail able on the [facility] websi te: https ://ww w.kid tanya.o rg/pr ofess ional s/kdo qi/gf r_cal culat or Not Available [facility] (Lab) [address] [place], [address], 08/19/2023 18:42:07 08/19/19 24 08/19/2023 BASIC METAB OLIC PANEL calcium 9.1 mg/dL 8.4-10 .2 Not Available [facility] (Lab) [address] [place], [address], 08/19/2023 18:42:07 02/18/20 24 02/18/2024 CBC/C OMPLE TE BLD COUNT W/DIF F white blood cells 5.4 x10'3 /uL 4.2-10 .8 Not Available [facility] (Lab) [address] [place], [address], 02/18/2024 14:30:17 02/18/20 24 02/18/2024 CBC/C OMPLE TE BLD COUNT W/DIF F red blood cells 4.11 x10'6 /uL 3.80-5 .20 Not Available [facility] (Lab) [address] [place], [address], 02/18/2024 14:30:17 02/18/20 24 02/18/2024 CBC/C OMPLE TE BLD COUNT W/DIF F hemoglobin 13.3 g/dL 12.0-1 5.6 Not Available [facility] (Lab) [address] [place], [address], 02/18/2024 14:30:17 02/18/2002/18/2024 CBC/C OMPLE TE BLD COUNT W/DIF F hematocrit 40.6 % 35.7-4 5.7 Not Available [facility] (Lab) [address] [place], [address], 02/18/2024 14:30:17 02/18/2002/18/2024 CBC/C OMPLE TE BLD COUNT W/DIF F mean red cell volume 98.8 fL 82.0-9 9.0 Not Available [facility] (Lab) [address] [place], [address], 02/18/2024 14:30:17 02/18/2002/18/2024 CBC/C OMPLE TE BLD COUNT W/DIF F mean red cell hemoglobin 32.4 pg 27.0-3 3.0 Not Available [facility] (Lab) [address] [place], [address], 02/18/2024 14:30:17 02/18/2002/18/2024 CBC/C OMPLE TE BLD COUNT W/DIF F mean RBC HGB concentratio n 32.8 g/dL 31.0-3 6.0 Not Available [facility] (Lab) [address] [place], [address], 02/18/2024 14:30:17 02/18/20 24 02/18/2024 CBC/C OMPLE TE BLD COUNT W/DIF F red cell distribution width 13.3 % 11.8-1 5.5 Not Available [facility] (Lab) [address] [place], [address], 02/18/2024 14:30:17 02/18/20 24 02/18/2024 CBC/C OMPLE TE BLD COUNT W/DIF F platelets 298 x10'3 /uL 150-40 0 Not Available [facility] (Lab) [address] [place], [address], 02/18/2024 14:30:17 02/18/20 24 02/18/2024 CBC/C OMPLE TE BLD COUNT W/DIF F mean platelet volume 10.2 fL 9.0-12 .4 Not Available [facility] (Lab) [address] [place], [address], 02/18/2024 14:30:17 02/18/20 24 02/18/2024 CBC/C OMPLE TE BLD COUNT W/DIF F neutrophils 61.3 % 39.0-7 2.0 Not Available [facility] (Lab) [address] [place], [address], 02/18/2024 14:30:17 02/18/20 24 02/18/2024 CBC/C OMPLE TE BLD COUNT W/DIF F lymphocytes 30.5 % 16.0-4 7.0 Not Available [facility] (Lab) [address] [place], [address], 02/18/2024 14:30:17 02/18/20 24 02/18/2024 CBC/C OMPLE TE BLD COUNT W/DIF F monocytes 5.4 % 5.0-12 .0 Not Available [facility] (Lab) [address] [place], [address], 02/18/2024 14:30:17 02/18/20 24 02/18/2024 CBC/C OMPLE TE BLD COUNT W/DIF F eosinophils 2.0 % 1.0-7. 0 Not Available [facility] (Lab) [address] [place], [address], 02/18/2024 14:30:17 02/18/20 24 02/18/2024 CBC/C OMPLE TE BLD COUNT W/DIF F basophils 0.6 % 0.0-2. 0 Not Available [facility] (Lab) [address] [place], [address], 02/18/2024 14:30:17 02/18/20 24 02/18/2024 CBC/C OMPLE TE BLD COUNT W/DIF F immature granulocytes 0.2 % 0.00-0 .50 Not Available [facility] (Lab) [address] [place], [address], 02/18/2024 14:30:17 02/18/20 24 02/18/2024 CBC/C OMPLE TE BLD COUNT W/DIF F neutrophils, absolute count 3.29 x10'3 /uL 1.5-8. 0 Not Available [facility] (Lab) [address] [place], [address], 02/18/2024 14:30:17 02/18/20 24 02/18/2024 CBC/C OMPLE TE BLD COUNT W/DIF F lymphocytes, absolute count 1.64 x10'3 /uL 1.07-3 .43 Not Available [facility] (Lab) [address] [place], [address], 02/18/2024 14:30:17 02/18/20 24 02/18/2024 CBC/C OMPLE TE BLD COUNT W/DIF F monocytes, absolute count 0.29 x10'3 /uL 0.29-0 .99 Not Available [facility] (Lab) [address] [place], [address], 02/18/2024 14:30:17 02/18/20 24 02/18/2024 CBC/C OMPLE TE BLD COUNT W/DIF F eosinophils, absolute count 0.11 x10'3 /uL 0.02-0 .53 Not Available [facility] (Lab) [address] [place], [address], 02/18/2024 14:30:17 02/18/20 24 02/18/2024 CBC/C OMPLE TE BLD COUNT W/DIF F basophils, absolute count 0.03 x10'3 /uL 0.01-0 .08 Not Available [facility] (Lab) [address] [place], [address], 02/18/2024 14:30:17 02/18/20 24 02/18/2024 CBC/C OMPLE TE BLD COUNT W/DIF F immature granulocytes ,absolute 0.01 x10'3 /uL 0.00-0 .05 Not Available [facility] (Lab) [address] [place], [address], 02/18/2024 14:30:17 02/18/20 24 02/18/2024 CBC/C OMPLE TE BLD COUNT W/DIF F nucleated red blood cells 0.0 % -0 Not Available [facility] (Lab) [address] [place], [address], 02/18/2024 14:30:17 02/18/20 24 02/18/2024 CBC/C OMPLE TE BLD COUNT W/DIF F NRBC# 0.00 x10'3 /uL Not Available [facility] (Lab) [address] [place], [address], 02/18/2024 14:30:17 02/18/20 24 02/18/2024 URINA LYSIS COMPL ETE, IRIS color LIGHT- YELLOW Not Available [facility] (Lab) [address] [place], [address], 02/18/2024 15:14:55 02/18/20 24 02/18/2024 URINA LYSIS COMPL ETE, IRIS appear CLEAR Not Available [facility] (Lab) [address] [place], [address], 02/18/2024 15:14:55 02/18/20 24 02/18/2024 URINA LYSIS COMPL ETE, IRIS specific gravity 1.024 1.001- 1.030 Not Available [facility] (Lab) [address] [place], [address], 02/18/2024 15:14:55 02/18/20 24 02/18/2024 URINA LYSIS COMPL ETE, IRIS pH 7.5 pH_un its 5.0-9. 0 Not Available [facility] (Lab) [address] [place], [address], 02/18/2024 15:14:55 02/18/20 24 02/18/2024 URINA LYSIS COMPL ETE, IRIS leukocytes NEGATI VE ilia/u L negati ve- Not Available [facility] (Lab) [address] [place], [address], 02/18/2024 15:14:55 02/18/20 24 02/18/2024 URINA LYSIS COMPL ETE, IRIS nitrite NEGATI VE negati ve- Not Available [facility] (Lab) [address] [place], [address], 02/18/2024 15:14:55 02/18/20 24 02/18/2024 URINA LYSIS COMPL ETE, IRIS protein NEGATI VE mg/dL negati ve- Not Available [facility] (Lab) [address] [place], [address], 02/18/2024 15:14:55 02/18/20 24 02/18/2024 URINA LYSIS COMPL ETE, IRIS glucose NORMAL mg/dL normal - Not Available [facility] (Lab) [address] [place], [address], 02/18/2024 15:14:55 02/18/20 24 02/18/2024 URINA LYSIS COMPL ETE, IRIS ketones NEGATI VE mg/dL negati ve- Not Available [facility] (Lab) [address] [place], [address], 02/18/2024 15:14:55 02/18/20 24 02/18/2024 URINA LYSIS COMPL ETE, IRIS urobilinogen NORMAL mg/dL normal - Not Available [facility] (Lab) [address] [place], [address], 02/18/2024 15:14:55 02/18/20 24 02/18/2024 URINA LYSIS COMPL ETE, IRIS bilirubin NEGATI VE mg/dL negati ve- Not Available [facility] (Lab) [address] [place], [address], 02/18/2024 15:14:55 02/18/20 24 02/18/2024 URINA LYSIS COMPL ETE, IRIS blood NEGATI VE mg/dL negati ve- Not Available [facility] (Lab) [address] [place], [address], 02/18/2024 15:14:55 02/18/20 24 02/18/2024 URINA LYSIS COMPL ETE, IRIS white blood cells 0-8 /i??h pfi?? 0-8 Not Available [facility] (Lab) [address] [place], [address], 02/18/2024 15:14:55 02/18/20 24 02/18/2024 URINA LYSIS COMPL ETE, IRIS red blood cells 0-4 /i??h pfi?? 0-4 Not Available [facility] (Lab) [address] [place], [address], 02/18/2024 15:14:55 02/18/20 24 02/18/2024 URINA LYSIS COMPL ETE, IRIS bacteria OCCASI ONAL abnormal Not Available [facility] (Lab) [address] [place], [address], 02/18/2024 15:14:55 02/18/20 24 02/18/2024 URINA LYSIS COMPL ETE, IRIS mucous OCCASI ONAL /i??l pfi?? abnormal Not Available [facility] (Lab) [address] [place], [address], 02/18/2024 15:14:55 02/18/20 24 02/18/2024 URINA LYSIS COMPL ETE, IRIS squamous epithelial PACKED FIELD /i??l pfi?? abnormal Not Available [facility] (Lab) [address] [place], [address], 02/18/2024 15:14:55 02/18/20 24 02/18/2024 VITAM IN D 25-HY DROXY [id number] 36.0 NG/mL 30-100 Vitam in D Statu s: Defic ient: <20 ng/mL Insuf ficie nt: 20-29 ng/mL Suffi cient : 30-10 0 ng/mL Not Available [facility] (Lab) [address] [place], [address], 02/18/2024 16:16:19 02/18/20 24 02/18/2024 COMPR EHENS MALKA METAB OLIC PANEL sodium 138 mmol/ L 137-14 5 Not Available [facility] (Lab) [address] [place], [address], 02/18/2024 16:49:24 02/18/20 24 02/18/2024 COMPR EHENS MALKA METAB OLIC PANEL potassium 4.0 mmol/ L 3.5-5. 1 Not Available [facility] (Lab) [address] [place], [address], 02/18/2024 16:49:24 02/18/20 24 02/18/2024 COMPR EHENS MALKA METAB OLIC PANEL chloride 108 mmol/ L 98-107 high Not Available [facility] (Lab) [address] [place], [address], 02/18/2024 16:49:24 02/18/20 24 02/18/2024 COMPR EHENS MALKA METAB OLIC PANEL carbon dioxide 26 mmol/ L 22-30 Not Available [facility] (Lab) [address] [place], [address], 02/18/2024 16:49:24 02/18/20 24 02/18/2024 COMPR EHENS MALKA METAB OLIC PANEL anion gap 8.0 mmol/ L 14-22 low Not Available [facility] (Lab) [address] [place], [address], 02/18/2024 16:49:24 02/18/20 24 02/18/2024 COMPR EHENS MALKA METAB OLIC PANEL glucose 101 mg/dL 70-99 high Not Available [facility] (Lab) [address] [place], [address], 02/18/2024 16:49:24 02/18/20 24 02/18/2024 COMPR EHENS MALKA METAB OLIC PANEL BUN 23 mg/dL 8-19 high Not Available [facility] (Lab) [address] [place], [address], 02/18/2024 16:49:24 02/18/20 24 02/18/2024 COMPR EHENS MALKA METAB OLIC PANEL creatinine 0.62 mg/dL 0.66-1 .25 low Not Available [facility] (Lab) [address] [place], [address], 02/18/2024 16:49:24 02/18/20 24 02/18/2024 COMPR EHENS MALKA METAB OLIC PANEL GFR >60 Refer ence Range : [place] GFR Healt hy Adult : >60 mL/mi n/1.7 3 m2 Chron ic Kidne y Disea se: 15-60 mL/mi n/1.7 3 m2 Kidne y Failu re: <15/m L/min /1.73 m2 www.n iddk. [facility].g ov The MDRD study equat ion has [...] calcu lator is avail able on the [facility] websi te: https ://keren martínez.rosaline garza/pancho kiddal s/phyliciao qi/gf r_cal culat or Not Available [facility] (Lab) [address] [place], [address], 02/18/2024 16:49:24 02/18/2002/18/2024 COMPR EHENS MALKA METAB OLIC PANEL alkaline phosphatase 59 U/L 38-126 Not Available [facility] (Lab) [address] [place], [address], 02/18/2024 16:49:24 02/18/2002/18/2024 COMPR EHENS MALKA METAB OLIC PANEL alanine aminotransfe rase 14 U/L 0-35 Not Available [facility] (Lab) [address] [place], [address], 02/18/2024 16:49:24 02/18/20 24 02/18/2024 COMPR EHENS MALAK METAB OLIC PANEL aspartate aminotransfe rase 21 U/L 15-37 Not Available [facility] (Lab) [address] [place], [address], 02/18/2024 16:49:24 02/18/20 24 02/18/2024 COMPR EHENS MALKA METAB OLIC PANEL bilirubin, total 0.40 mg/dL 0.20-1 .30 Not Available [facility] (Lab) [address] [place], [address], 02/18/2024 16:49:24 02/18/20 24 02/18/2024 COMPR EHENS MALKA METAB OLIC PANEL calcium 9.1 mg/dL 8.4-10 .2 Not Available [facility] (Lab) [address] [place], [address], 02/18/2024 16:49:24 02/18/20 24 02/18/2024 COMPR EHENS MALKA METAB OLIC PANEL total protein 6.8 g/dL 6.3-8. 2 Not Available [facility] (Lab) [address] [place], [address], 02/18/2024 16:49:24 02/18/20 24 02/18/2024 COMPR EHENS MALKA METAB OLIC PANEL albumin 4.3 g/dL 3.4-5. 0 Not Available [facility] (Lab) [address] [place], [address], 02/18/2024 16:49:24 02/18/20 24 02/18/2024 COMPR EHENS MALKA METAB OLIC PANEL globulin 2.5 g/dL 2.6-4. 2 low Not Available [facility] (Lab) [address] [place], [address], 02/18/2024 16:49:24 02/18/20 24 02/18/2024 COMPR EHENS MALKA METAB OLIC PANEL A/G ratio 1.7 ratio 1.0-2. 0 Not Available [facility] (Lab) [address] [place], [address], 02/18/2024 16:49:24 02/18/20 24 02/18/2024 LIPID PANEL cholesterol 177 mg/dL 140-19 9 NIH ERIC NSUS RECOM MENDA TION FOR HARRY STERO L: ADULT CHILD LOW RISK: <200 <170 BORDE RLINE : <200- 239 ----- HIGH RISK: >240 >200 Not Available [facility] (Lab) [address] [place], [address], 02/18/2024 16:49:34 02/18/20 24 02/18/2024 LIPID PANEL triglyceride s 43 mg/dL 0-150 NIH ERIC NSUS REPOR T RECOM MENDA TION FOR TRIGL YCERI ERICH: ADULT CHILD LOW RISK: <150 ----- BODER LINE: 150-1 99 ----- HIGH RISK: >200 ----- Not Available [facility] (Lab) [address] [place], [address], 02/18/2024 16:49:34 02/18/20 24 02/18/2024 LIPID PANEL HDL cholesterol 56 mg/dL 40- Not Available [facility] (Lab) [address] [place], [address], 02/18/2024 16:49:34 02/18/20 24 02/18/2024 LIPID PANEL [...] WILL NOT BE REPOR CHIDI. Not Available [facility] (Lab) [address] [place], [address], 02/18/2024 16:49:34 02/18/20 24 02/18/2024 URIC ACID SERUM uric acid 2.6 mg/dL 2.5-6. 2 Not Available [facility] (Lab) [address] [place], [address], 02/18/2024 16:49:36 02/18/20 24 02/18/2024 MAGNE SIUM magnesium 2.0 mg/dL 1.6-2. 3 Not Available [facility] (Lab) [address] [place], [address], 02/18/2024 16:49:39 02/18/20 24 02/18/2024 TSH W/REF DINA FT4 TSH with reflex free T4 1.150 uIU/m L 0.465- 4.680 Not Available [facility] (Lab) [address] [place], [address], 02/18/2024 16:51:36 02/18/20 24 02/18/2024 VITAM IN B12 ([place] ) vb12 801 pg/mL 239-93 1 Not Available [facility] (Lab) [address] [place], [address], 02/18/2024 16:56:54 02/18/20 24 02/18/2024 FOLAT E, SERUM /PLAS MA folate 7.43 NG/mL 2.76-2 0.0 Not Available [facility] (Lab) [address] [place], [address], 02/18/2024 16:56:59 02/18/20 24 02/18/2024 HEMOG LOBIN A1C HA1C 5.3 % 4.0-6. 0 Diabe ruben Scree jose Crite pa: <5.7% Consi stent with absen ce of diabe ruben 5.7-6 .4% Consi stent with incre ased risk for diabe ruben (pred iabet es) >OR=6 .5% Consi stent with diabe ruben REFER ENCE: Diabe ruben Care 2016, 39(Wade ppl.1 ):s13 -s22 Not Available [facility] (Lab) [address] [place], [address], 02/18/2024 21:49:56 08/27/19 25 08/26/2024 LIPID PANEL cholesterol 184 mg/dL 140-19 9 NIH ERIC NSUS RECOM MENDA TION FOR HARRY STERO L: ADULT CHILD LOW RISK: <200 <170 BORDE RLINE : <200- 239 ----- HIGH RISK: >240 >200 Not Available [facility] (Lab) [address] [place], [address], 08/26/2024 14:53:39 08/27/19 25 08/26/2024 LIPID PANEL triglyceride s 48 mg/dL 0-150 NIH ERIC NSUS REPOR T RECOM MENDA TION FOR TRIGL YCERI ERICH: ADULT CHILD LOW RISK: <150 ----- BODER LINE: 150-1 99 ----- HIGH RISK: >200 ----- Not Available [facility] (Lab) [address] [place], [address], 08/26/2024 14:53:39 08/27/19 25 08/26/2024 LIPID PANEL HDL cholesterol 66 mg/dL 40- Not Available [facility] (Lab) [address] [place], [address], 08/26/2024 14:53:39 08/27/19 25 08/26/2024 LIPID PANEL LDL cholesterol, calculated 108 mg/dL 0-130 NIH ERIC NSUS REPOR T [...] WILL NOT BE REPOR CHIDI. Not Available [facility] (Lab) [address], [place], [address], 08/26/2024 14:53:39 Result Notes None recorded. Problems Name Problem SNOMED Code Status Onset Date Resolution Date Notes Provider Name and Address Organization Details Recorded Time Chronic neck pain 0375419536619 Active 2022 Daniel Conrad MD [address], [place], [address], [employer] [facility] 14:19:59 Neuropathy 411957146 Active 2022 Daniel Conrad MD [address], [place], [address], [employer] [facility] 14:20:12 Paresthesia of lower extremity 389861743 Active 2022 Daniel Conrad MD [address], [place], [address], [employer] [facility] 14:21:18 Overweight 631576868 Active 2022 Daniel Conrad MD [address] [place] [address], [place], [address], [employer] [facility] 14:22:24 Pain of left knee joint 7074636964499 07 Active 2022 Daniel Conrad MD [address], [place], [address], [employer] [facility] 14:22:41 Cervical radiculopat hy 97854822 Active 2022 Daniel Conrad MD [address] [place], [address], [employer] [facility] 14:24:30 Prolapsed cervical interverteb ral disc 669177185 Active 2022 Daniel Conrad MD [address] [place], [address], [employer] [facility] 14:50:42 Chronic pain 97657208 Active 2022 Daniel Conrad MD [address], [place], [address], [employer] [facility] 14:51:23 Seasonal allergic rhinitis 405235955 Active 2022 Daniel Conrad MD [address], [place], [address], [employer] 11:14:03 Asthma 002364344 Active 2022 Daniel Conrad MD [address], [place], [address], [employer] 11:14:58 Hyperlipide debby 58699273 Active 2022 Daniel Conrad MD [address], [place], [address], [employer] 09:24:33 Hyperkalemi a 14720275 Active 2022 Daniel Conrad MD [address], [place], [address], [employer] 09:24:47 Folliculiti s 69048686 Active 2022 Daniel Conrad MD [address], [place], [address], [employer] 10:37:12 Keratosis pilaris 9506279 Active 2023 Daniel Conrad MD [address], [place], [address], [employer] 10:06:05 Ex-cigarett e smoker 091662603 Active 2023 Daniel Conrad MD [address], [place], [address], [facility] 09:16:49 Cervical spondylosis without myelopathy 204267271 Active 2024 Daniel Conrad MD [address], [facility] [address], [place], [address], [facility] [employer] 5 16:44:04 Problem Notes None recorded. Medical Equipment None Reported. Allergies Allergen ID Allergen Name Allergen Category Reaction Reaction Severity Criticality Documentation Date Start Date Code Code System Note Provider Name and Address Organization Details Recorded Time 10103 acetamino phen medicatio n hives severe high 01/14/2023 161 RxNorm Vito lozada, [facility] [employer] 3 14:06:14 Medications Name Sig Start Date [...] Not Available Not Available No t Available triamcinolo ne acetonide 0.1 % topical cream APPLY TO THE AFFECTED AREA TWICE DAILY active Not Available Not Available No t Available diclofenac sodium 75 mg tablet,teressa yed release Take 1 tablet every 12 hours by oral route as needed for 30 days. 2024 active Not Available Not Available Not Avai lable montelukast 10 mg tablet Take 1 tablet every day by oral route in the evening for 30 days. 08/28 completed Not Available Not Available Not Available albuterol sulfate HFA 90 mcg/actuati on aerosol inhaler Inhale 2 puffs every 4-6 hours by inhalatio n route as needed for 15 days. 2024 active Not Available Not Available Not Avai lable fluticasone propionate 50 mcg/actuati on nasal spray,suspe nsion Fowler 2 sprays every day by intranasa l route as needed for 30 days. 2024 active Not Available Not Available Not Avai lable Vitals Date Recorded Body height Body mass index (BMI) Body weight Body temperature Heart rate Respiratory rate Oxygen saturation Oxygen saturation in Arterial blood by Pulse oximetry Systolic blood pressure Diastolic blood pressure Provider Name and Address Organization Details Last Updated DateTime 4 157.48 cm 26.7 kg/m2 81305.1 9 g 98.1 [degF] 80 /min 16 /min 99 % 99 % 108 mm[Hg] 62 mm[Hg] Vito [facility] [employer] [facility] 4 09:59:10 Date Recorded Body height Body mass index (BMI) Body weight Body temperature Heart rate Respiratory rate Oxygen saturation Oxygen saturation in Arterial blood by Pulse oximetry Systolic blood pressure Diastolic blood pressure Provider Name and Address Organization Details Last Updated DateTime 4 157.48 cm 24.9 kg/m2 28809.2 6 g 97.9 [degF] 76 /min 16 /min 99 % 99 % 110 mm[Hg] 66 mm[Hg] Vito [facility] [employer] [facility] 4 08:59:37 Date Recorded Body height Body mass index (BMI) Body weight Body temperature Heart rate Systolic blood pressure Diastolic blood pressure Provider Name and Address Organization Details Last Updated DateTime 4 157.48 cm 24.9 kg/m2 45491.6 6 g 99 [degF] 80 /min 118 mm[Hg] 76 mm[Hg] Amy Simmons RN [facility] [employer] [facility] 4 16:24:30 Date Recorded Oxygen saturation Oxygen saturation in Arterial blood by Pulse oximetry Provider Name and Address Organization Details Last Updated DateTime 03/05/2024 98 % 98 % Daniel Conrad MD [address] [place] [address], [address], [facility] [employer] [facility] 03/05/2024 16:25:28 Date Recorded Body height Body mass index (BMI) Body weight Body temperature Oxygen saturation Oxygen saturation in Arterial blood by Pulse oximetry Heart rate Systolic blood pressure Diastolic blood pressure Provider Name and Address Organization Details Last Updated DateTime 5 157.48 cm 26 kg/m2 71762.1 2 g 98.4 [degF] 96 % 96 % 80 /min 110 mm[Hg] 72 mm[Hg] Gloria Cuenca RN [place] [facility] 16:27:00 Social History Question Answer Notes LastModified by Organizat ion Details LastModified Time Tobacco Smoking Status Former Smoker Vito lozada, [place] [facility] 01/14/2023 14:11:43 Do You Have An Advance Directive? No Information not available 01/14/2023 If You Are [...] Or The Highest Degree You Have Received? [id number] Information not available 01/14/2023 Have There Been [...] Do You Have A Medical Power Of Business Services Vice President? No Information not available 01/14/2023 How Many [...] Dietary Restrictions? Yes Information not available 01/14/2023 Sex: Female Functional Status Question Answer Note LastModified by Organizat ion Details LastModified Time Do you use any illicit or recreational drugs? No Information not available 01/14/2023 Do you or have you ever used any other forms of tobacco or nicotine? No Information not available 01/14/2023 What is your level of alcohol consumption? None Information not available 01/14/2023 What is your exercise level? Occasional Information not available 01/14/2023 Mental Status Question Answer Note LastModified by Organization D etails LastModified Time Do you feel stressed (tense, restless, nervous, or anxious, or unable to sleep at night)? [id number] Information not available 01/14/2023 Family History Nothing Reported. Medical History Condition Response BLINDNESS N RHEUMATIC FEVER N KIDNEY STONES N BLADDER PROBLEMS N MRSA N OTHER # 1 N POLIO N LUNG DISEASE/DISORDER N HISTORY OF DRUG ABUSE N COPD N RADIATION / CHEMOTHERAPY N Other # 2 N BLOOD DISEASES N SURGERY N EAR OR HEARING PROBLEMS N MUMPS N SHINGLES N FEMALE PROBLEMS / INFECTIONS N DEPRESSION (INCLUDING POST ) N BOWEL PROBLEMS N FAILED BACK SYNDROME N STROKE/TIA N THYROID DISEASE N ULCERS N BENIGN PROSTATIC HYPERPLASIA N MEASLES N CERVICALGIA N HYPOTENSION N TB SKIN TEST N MYOCARDIAL INFARCTION N OBESITY N PARAPELGIA N GERD/NAUSEA N ANEURYSM N URINARY/BLADDER/KIDNEY PROBLEMS N CORONARY ARTERY DISEASE (CAD) N Do you have Advance directive? N MENIERE'S DISEASE N ADDICTION CONCERNS N ENDOMETRIOSIS N USE OF BLOOD THINNERS N SKIN PROBLEMS N EMPHYSEMA N GASTROINTESTINAL DISORDER N PERIPHERAL ARTERY DISEASE N MUSCLE,JOINT OR BONE PROBLEMS N GASTROINTESTINAL BLEEDING N BLOOD CLOTS N ASTHMA N CATARACTS N Abdominal Pain N ERECTILE DYSFUNCTION N ARTERIAL INSUFFICIENCY N GI PROBLEMS N CHF N Low Testosterone N NEUROPATHY N INFERTILITY N AIDS/HIV N FRACTURES N CHEMOTHERAPY / RADIATION N VISION/EYE PROBLEMS N LIVER DISEASE N HYPERTENSION N TOURETTE'S N ANXIETY DISORDER Y BLOOD TRANSFUSION N ANEMIA/BLOOD DISORDER N CHRONIC EAR INFECTIONS N BRONCHITIS N TUBERCULOSIS N GLAUCOMA N FOOT PROBLEM N DIVERTICULITIS N SLEEP APNEA N CHICKENPOX N ALLERGIES/HAYFEVER N BACK INJECTIONS N INFECTIOUS DISEASE N PROSTATE N HEART ARRHYTHMIA N ESRD N INSOMNIA N HIGH CHOLESTEROL / HYPERLIPIDEMIA N EYE PROBLEMS N HYPERTHYROIDISM N PVD N EATING DISORDER N EDEMA N CHRONIC PAIN SYNDROME N CAROTID BLOCKAGE N CONSTIPATION N BACK / NECK PROBLEMS N HAVE YOU BEEN HOSPITALIZED OR SEEN IN [facility] ER IN THE PAST YEAR ? N ATHEROSCLEROSIS [...] DISORDER N ALZHEIMER'S DISEASE N PAIN N DEMENTIA N HERPES N SEIZURES/EPILEPSY N HEADACHES/MIGRAINES N VASCULAR DISEASE N PACEMAKER N DIZZINESS N KIDNEY DISEASE N HEART DISEASE/HEART PROBLEMS N SCARLET FEVER N MULTIPLE SCLEROSIS N MENTAL DISORDER/ILLNESS N DEVELOPMENTAL OR BEHAVIORAL DISORDERS N NEUROPSYCHOLOGICAL N CANCER: SPECIFY N CARDIAC ARRHYTHMIA N PNEUMONIA N ATRIAL FIBRILLATION N Gall Stones N PULMONARY EMBOLISM N AUTOIMMUNE DISEASE N Gynecological History Statement/Question Response Current Control Method None Obstetrics History GPAL:G 1 P 1 0 0 0 Type Value Full Term 1 Premature 0 Total 1 Past Encounters Encounter ID Performer Location Encounter Start Date Encounter Closed Date Diagnosis/Indication Diagnosis SNOMED-CT Code Diagnosis ICD10 Code Diagnosis Note [id number] Daniel Conrad MD [facility] [address] [address] 01/14/2023 14:00:43 01/14/2023 14:56:08 Chronic neck pain 0659033013 107 M54.2 Neuropathy 168641017 G62 .9 Paresthesi a of lower extremity 914234391 R20.2 Overweight 442751272 E66 .3 Pain of le ft knee joint 5980629362 06737 M25.562 Cervical radiculopathy 70535139 M54.12 Prolapsed cervical intervertebral disc 062826614 M50.20 Chronic pain 69173496 G8 9.29 [id number] Daniel Conrad MD [place] [id number] 01/30/2023 10:52:51 01/30/2023 11:54:55 Adult health examination 634081106 Z00.00 Chronic neck pain 206500 0506 107 M54.2 Pain of le ft knee joint 2072741880 42742 M25.562 Neuropathy 039330182 G62 .9 Overweight 576024038 E66 .3 Seasonal a llergic rhinitis 534703560 J30.2 Asthma 596558180 J45.90 9 Chronic pain 17893281 G8 9.29 [id number] Daniel Conrad MD [place] [id number] 02/14/2023 09:10:35 02/14/2023 09:45:17 Chronic neck pain 0077692273 107 M54.2 Pain of le ft knee joint 5636482994 61087 M25.562 Chronic Neuropathy 921244685 G62 .9 Overweight 405095142 E66 .3 Seasonal a llergic rhinitis 450336699 J30.2 Asthma 910141432 J45.90 9 Chronic pain 36772639 G8 9.29 Hyperlipidemia 56002118 E78.5 Hyperkalemia 47341968 E8 7.5 [id number] Daniel Conrad MD [place] [id number] 03/19/2023 10:16:27 03/19/2023 10:37:29 [id number] Daniel Conrad MD [address] [address] 05/01/2023 09:25:05 05/01/2023 09:56:30 [id number] Daniel Conrad MD [address] [address] 05/30/2023 10:23:58 05/30/2023 10:45:35 Hyperlipidemia 04610903 E78.5 Hyperkalemia 18708631 E8 7.5 Chronic neck pain 729060 5736 107 M54.2 Pain of le ft knee joint 6114623069 74837 M25.562 Chronic Neuropathy 678756765 G62 .9 Overweight 940203755 E66 .3 Seasonal a llergic rhinitis 851209384 J30.2 Asthma 912950444 J45.90 9 Chronic pain 26151762 G8 9.29 Folliculitis 33836845 L7 3.9 [id number] Daniel Conrad MD [address] [address] 08/19/2023 09:06:01 08/19/2023 12:24:06 [id number] Daniel Conrad MD [address] [address] 08/29/2023 09:53:47 08/29/2023 10:19:35 Hyperlipidemia 97801543 E78.5 Diet controlled - improved Hyperkalemia 94089434 E8 7.5 resolved Chronic neck pain 665710 0128 107 M54.2 Pain of le ft knee joint 1020710494 53118 M25.562 Chronic Neuropathy 547497538 G62 .9 Overweight 367091694 E66 .3 Seasonal a llergic rhinitis 344262475 J30.2 Asthma 581475107 J45.90 9 Chronic pain 03588742 G8 9.29 Keratosis pilaris 994058 5 Q82.8 [id number] Daniel Conrad MD [address] [address] 02/18/2024 08:48:20 02/18/2024 09:22:14 Hyperlipidemia 72013774 E78.5 Diet controlled - improved Hyperkalemia 05035887 E8 7.5 resolved Chronic neck pain 806933 6431 107 M54.2 Pain of le ft knee joint 3128657383 46562 M25.562 Chronic Neuropathy 732884268 G62 .9 Overweight 353739453 E66 .3 Seasonal a llergic rhinitis 094424428 J30.2 Asthma 281179207 J45.90 9 Chronic pain 19777283 G8 9.29 Keratosis pilaris 672125 5 Q82.8 Adult heal th examination 628490675 Z00.00 Ex-cigarette smoker 2810 89557 Z87.361 [id number] Daniel Conrad MD [address] [address] 03/05/2024 16:18:26 03/05/2024 16:40:46 Hyperlipidemia 36982769 E78.5 Diet controlled - improved Hyperkalemia 37952823 E8 7.5 resolved Chronic neck pain 311984 9013 107 M54.2 Pain of le ft knee joint 5766367995 48383 M25.562 Chronic Neuropathy 790848071 G62 .9 Seasonal a llergic rhinitis 998336767 J30.2 Asthma 057420080 J45.90 9 Keratosis pilaris 352703 5 Q82.8 Ex-cigarette smoker 2810 64871 Z87.792 [id number] Daniel Conrad MD [address] [address] 08/26/2024 08:37:35 08/26/2024 11:44:49 [id number] Daniel Conrad MD [address] [address] 09/02/2024 16:15:54 09/02/2024 16:47:21 Hyperlipidemia 19848071 E78.5 Diet controlled - improved Chronic neck pain 714418 5977 107 M54.2 Pain of le ft knee joint 0092836905 47648 M25.562 Chronic Neuropathy 530446380 G62 .9 Seasonal a llergic rhinitis 338327596 J30.2 Asthma 726307558 J45.90 9 Keratosis pilaris 457797 5 Q82.8 Ex-cigarette smoker 2810 09631 Z87.891 Cervical s pondylosis without myelopathy 086562697 M47.812 Health Concerns Section Related Observation LastModified by Organization Detai ls LastModified Time None Recorded Concern Status LastModified by Organization Details LastModified Time None Recorded Advance Directives Directive N: Payers Encounter Date Sequence Insurance Name Policy Number Policy Grady Covered Member ID Grady Member ID Guarantor Name 08/29/2023 1 [employer] [facility] [place] (MEDICARE - MEDICAID REPLACEMENT HMO) [id number] 0003 An Douglas [id number] An Douglas 02/18/2024 1 [employer] [place] [place]MEDICARE - MEDICAID REPLACEMENT HMO) [id number] 0003 An Douglas [id number] An Douglas 03/05/2024 1 [employer] [place]MED[place]ARE - MEDICAID REPLACEMENT HMO) [id number] 0003 An Douglas [id number] An Douglas 08/26/2024 1 [employer] [place] [place]MEDICARE - MEDICAID REPLACEMENT HMO) [id number] 0003 An Douglas [id number] An Douglas 09/02/2024 1 [employer] [place] [employer] [place]MEDICARE - MEDICAID REPLACEMENT HMO) [id number] 0003 An Douglas [id number] An Douglas Notes Date Note Type Note Provider Name and Address Organization Details Recorded Time 08/29/2023 text/html Pt is here for f [...] it in the past. Daniel Conrad MD [address] [place] [address], [place] [address], [place], [address], [facility] [employer] 08/29/2023 10:14:55 02/18/2024 text/html Pt is here [...] in the past. Daniel Conrad MD [address] [facility], [facility] [address], [place], [address], [facility] [employer] 02/18/2024 09:17:26 03/05/2024 text/html Pt is here [...] in the past. Daniel Conrad MD [address] [facility], [facility] [address], [place], [address], [facility] [employer] 03/05/2024 16:38:24 09/02/2024 text/html Pt is here for f /u on her lab and chronic conditions. Doing overall much better than before. Denies any problem with meds. Denies any new concern. Pt got rid of all her pets and since than, her allergies area much better. Pt has not seen Pain clinic yet. Pt has their info. Pt is f/u with Neuro at [place], [place] and got MRI c-spine wo done with them and she has cervical disc prolapse present.C/o chronic neck and upper back area pain for last several years. Pt has seen few specialists in the past for this and due to her insurance not covering them. Pt never had any procedure/surgery done for this. Pt had MRI c-spine wo done in 07/07. Daniel Conrad MD [address] [place] [address], [facility] [address], [place], [address], [facility] [employer] 09/02/2024 16:45:11 OBGyn Episode No OBEpisode recorded.
[2024-11-07 07:40] LABS: Hematocrit 40.3 % (37.0-47.0); Hemoglobin 13.2 g/dL (12.0-15.0); Mean Corpuscular HGB Conc 32.8 g/dl (32-36); Mean Corpuscular Hemoglobin 31.7 pg (26-34); Mean Corpuscular Volume 96.9 fl (80-100); Mean Platelet Volume 9.1 fl (7.4-10.4); Platelet Count Result 276 k/mm3 (150-375); Red Blood Count 4.16 M/mm3 (4.2-5.4); White Blood Count 5.6 K/mm3 (4.5-10.0)
[2024-11-07 07:54] LABS: Alanine Aminotransferase 22 U/L (6-35); Albumin Level 4.1 g/dL (3.5-5.1); Alkaline Phosphatase 49 U/L (38-126); Anion Gap 7 mmol/L (4-12); Aspartate Amino Transferase 25 U/L (14-36); Bilirubin,Total 0.5 mg/dL (0.2-1.3); Blood Urea Nitrogen 18 mg/dL (7-17); Calcium 8.7 mg/dL (8.4-10.2); Carbon Dioxide 26 mmol/L (22-30); Chloride 106 mmol/L (98-107); Cholesterol 199 mg/dL (0-200); Estimated Glomerular Filt Rate > 60; Glucose 100 mg/dL (65-110); HDL Direct 70 mg/dL; Sodium 139 mmol/L (137-145); Triglycerides 46 mg/dL (<150)
[2024-11-07 08:07] LABS: LDL Cholesterol Direct 100 mg/dL
== END 2024-11-07 07:07 | disposition home or self-care (01) ==
LOC: ANHLAB 07:07
PROVIDERS: PCP Family Medicine; Visit Provider Family Medicine
DX: J45.909 Unspecified asthma, uncomplicated (principal); M19.90 Unspecified osteoarthritis, unspecified site; M77.40 Metatarsalgia, unspecified foot; Z00.00 Encounter for general adult medical examination without abnormal findings; G43.909 Migraine, unspecified, not intractable, without status migrainosus
CPT/HCPCS: 36415; 80053; 80061; 85027

== ENCOUNTER 2025-05-12 06:51 | Outpatient (CLI) | payer OTHER, SELFPAY ==
--- OUTSIDE RECORDS SUMMARY | 2025-05-12 06:55 | XMS_ITS | Clinical Summary ---
Author Organization [facility] Address [address] [place] [address] Care Team Providers [employer] Name Role Phone Jake Yanes MD Primary Care Provider Allergies Active Allergy Reactions Criticality Noted Date Comments Acetaminophen Hives 07/07/2024 Cetirizine Joint Pain 07/07/2024 Medications albuterol sulfate HFA 108 (90 Base) MCG/ACT inhaler INHALE 2 PUFFS BY MOUTH EVERY 4 TO 6 HOURS FOR 15 DAYS NEEDED 02/18/2024 Active diclofenac EC (VOLTAREN) 75 MG tablet Take 1 tablet (75 mg total) by mouth every 12 (twelve) hours as needed. 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 Gender Identity Not on file Sexual Orientation Not on file Last Filed Vital Signs Vital Sign Reading Time Taken Comments Blood Pressure 108/76 07/07/2024 10:21 AM INTERIOR DESIGN PROFESSOR Pulse 80 07/07/2024 10:21 AM INTERIOR DESIGN PROFESSOR Temperature 37 C (98.6 F) 07/07/2024 10:21 AM INTERIOR DESIGN PROFESSOR Respiratory Rate 16 07/07/2024 10:21 AM INTERIOR DESIGN PROFESSOR Oxygen Saturation 99% 07/07/2024 10:21 AM INTERIOR DESIGN PROFESSOR Inhaled Oxygen Concentration - - Weight 64.4 kg (142 lb) 07/07/2024 10:21 AM INTERIOR DESIGN PROFESSOR Height 157.5 cm (5' 2) 07/07/2024 10:21 AM INTERIOR DESIGN PROFESSOR Body Mass Index 25.97 07/07/2024 10:21 AM INTERIOR DESIGN PROFESSOR Plan of Treatment Health Maintenance Due Date Last Done Comments Cervical Cancer Screening Pa p Smear (Age 30 to 64) Every 3 Years 1986 Annual Physical 1989 Hepatitis C 2004 DTaP, Tdap and Td Vaccines ( 1 - Tdap) 2005 Hepatitis B Vaccines (1 of 3 - 19+ 3-dose series) 2005 HPV Vaccines (1 - 3-dose SCD M series) 2013 Cervical Cancer Screening Pa p with HPV Testing (Age 30 to 64) Every 5 Years 2016 Cervical Cancer Screening with HPV 2016 COVID-19 Vaccine (2024-2 6 season) 2025 Influenza Adult (#1) 2025 05/19/2013 PHQ-2 (Physician [place]) Completed 07/07/2024 Hepatitis A Vaccines Aged Out No long er eligible based on patient's age to complete this topic Meningococcal B Vaccine Aged Out No l onger eligible based on patient's age to complete this topic Meningococcal Vaccine Aged Out No lawanda brandon eligible based on patient's age to complete this topic Pneumococcal Vaccine: Pediat rics (0 to 5 Years) and At-Risk Patients (6 to 49 Years) Aged Out No longer eligi ble based on patient's age to complete this topic RSV Immunizations Under 20 Months Aged Out No longer eligible based on patient's age to complete this topic Insurance [employer] Care Teams [employer] Relationship Specialty Start Date End Date Jake Yanes MD [address] [place], [place] [id number] PCP - General FAMILY PRACTICE 05/19/24
== END 2025-05-12 06:52 | disposition home or self-care (01) ==
LOC: ANHLAB 06:53
PROVIDERS: PCP Family Medicine; Visit Provider Family Medicine
DX: M79.669 Pain in unspecified lower leg (principal)
CPT/HCPCS: 36415; 85380